=== PATIENT | male | born 1955 | race Caucasian/White ===

== ENCOUNTER 2019-05-30 10:30 | Emergency (ER) | payer MEDICAID, SELFPAY ==
[2019-05-30] VITALS (8 sets, daily range): BP systolic 124–160; BP diastolic 68–105; PULSE 87–116; RESP 6–24; TEMP 36.4; O2SAT 94–95; BMI 33.3
--- NOTE | 2019-05-30 10:32 | W.ED.FALL ---
HPI - Fall General: Chief Complaint: Extremity Problem,Nontraumatic Stated Complaint: FALL Time Seen by Provider: 05/30/19 10:32 Source: patient and family Mode of arrival: ambulatory Limitations: no limitations History of Present Illness: HPI Narrative: Patient is a 64-year-old male who presents to ED today with complaints of knee pain following a fall. Patient states he was ambulating to the bathroom with the help of a walker when his knees gave out causing him to fall. Patient denies striking his head or LOC. He does not complain of neck or back pain. Patient's knee pain is chronic. He has been seen at our facility several times for his knees buckling . MD complaint: fall Onset (ago): hour(s) Fall from: standing Fall witnessed: yes, by family Place fall occurred: home Loss of consciousness: None Prolonged down time: no Symptoms prior to fall: none Context: other (kneees gave out) Location of injury - extremities: Right: knee Associated symptoms-after fall: Denies abdominal pain, chest pain, headache(s), lightheadedness or neck pain Review of Systems Const: Denies: fever, chills, body aches, fatigue or malaise Eyes: Denies: change in vision or blurry vision Card: Reports: swelling of feet/ankles (chronic); Denies: chest pain, palpitations, irregular heart rhythm, edema, lightheadedness, syncope, pre-syncope or bluish discoloration of hands/feet Resp: Denies: shortness of breath, productive cough, coughing up blood or chest congestion GI: Denies: abdominal pain, nausea or vomiting : Denies: flank pain or difficulty urinating Musc: Reports: joint pain (bilateral knees-chronic) and joint swelling (bilateral knees-chronic ); Denies: neck pain or back pain Skin/Breast: Denies: rash or itching Neuro: Denies: headache, numbness in extremities, weakness in extremities or changes in sensation PFSH ED PFSH: Statuses (acute, chronic, etc) shown below reflect problem list status as previously entered and may not be historically accurate Social History Smoking and tobacco status: never smoked Physical Exam Const: COMMON NORMALS: no apparent distress, oriented x3, no limitations and alert HENMT: COMMON NORMALS: normocephalic and head/scalp atraumatic HEAD & SCALP: normocephalic and atraumatic Neck/C-Spine: COMMON NORMALS: full ROM CERVICAL SPINE: No pain with cervical ROM and No cervical spine tenderness Resp: COMMON NORMALS: normal respiratory effort and clear to auscultation bilaterally AUSCULTATION: clear to auscultation bilaterally Cardio: COMMON NORMALS: regular rate and regular rhythm RATE: regular rate RHYTHM: regular rhythm GI: COMMON NORMALS: soft to palpation and non-tender INSPECTION: Yes normal to inspection AUSCULTATION: Yes normoactive bowel sounds PALPATION: Yes soft Back/Pelvis: COMMON NORMALS: thoracic and lumbar spine normal to inspection and thoraco-lumbar ROM normal Extremity: OTHER: pt has 2+ bilateral pitting edema from his feet all the way up to his groin; genitals not affected; bilateral legs are cool to the touch but equal bilaterally Neuro: COMMON NORMALS: oriented x3 SENSORIUM/ORIENTATION: Yes alert Course Consultations: Consultation #1: Dr. Preston-hospitalist at [facility]-accepts patient Vital Signs: Vital signs: Vital Signs Temperature 97.5 F L 05/30/19 10:38 Pulse Rate 87 05/30/19 10:56 Respiratory Rate 19 H 05/30/19 10:38 Blood Pressure 160/101 05/30/19 10:38 Pulse Oximetry 94 05/30/19 10:56 MDM - Fall MDM Narrative: Medical decision making narrative: Patient initially came in with a complaint of his knees buckling however on physical exam he has 2+ pitting edema from his toes all the way up to his groin. He has cardiomegaly and a right-sided pleural effusion on his chest x-ray. He has a BNP of over 27,000. Complains of dyspnea with exertion. Patient denies history of CHF. He is supposed to be taking Lasix 40 mg daily but has not been taking this medication or any of his other medications since December. BUN/Cr slightly elevated at 27/1.6 and a GFR of 44. Mildly elevated potassium of 5.5. Patient needs to be admitted for careful diuresis however we do not have any beds available at our facility therefore will be transferred to [facility]. Lab Data: Labs: Lab Results 05/30/19 05/30/19 05/30/19 Range/Units 11:03 11:03 11:03 WBC 4.0 (4.0-10.0) 10^3/ uL RBC 3.85 L (4.1-5.3) 10^6/u L Hgb 10.8 L (11.7-16.6) g/dL Hct 36.4 L (42.0-52.0) % MCV 94.5 H (80-94) fL MCH 28.1 (28.0-34.0) pg MCHC 29.7 L (30.0-36.0) g/dL RDW 12.9 (12.1-15.1) % Plt Count 190 (130-400) 10^3/c mm MPV 8.7 (7.4-10.4) fL Neut % (Auto) 74.2 % Lymph % (Auto) 9.6 % Sully % (Auto) 12.4 % Eos % (Auto) 3.0 % Baso % (Auto) 0.8 % Neut # (Auto) 2.9 (1.8-7.7) 10^3/u L Lymph # (Auto) 0.4 L (0.8-4.8) 10^3/u L Sully # (Auto) 0.5 (0.2-0.9) 10^3/u L Eos # (Auto) 0.1 (0.0-0.8) 10^3/u L Baso # (Auto) 0.0 (0.0-0.1) 10^3/u L Nucleated RBC % (a uto) 0 % Nucleated RBCs # 0.0 /100WBC Sodium 140 (136-145) mmol/L Potassium 5.5 H (3.5-5.1) mmol/L Chloride 110 H (98-107) mmol/L Carbon Dioxide 22 (22-29) mmol/L Anion Gap 13.5 (5-19) BUN 27 H (8-23) mg/dL Creatinine 1.6 H (0.7-1.2) mg/dL GFR Calculation 44.0 L (90-130) mL/min Glucose 183 H (65-115) mg/dL Calcium 8.7 (8.5-10.5) mg/dL Magnesium 2.1 (1.7-2.3) mg/dL Total Bilirubin 0.4 (0.15-1.2) mg/dL AST 10 (0-40) U/L ALT 6 (0-41) U/L Alkaline Phosphata se 124 (40-130) IU/L NT-Pro-B Natriuret Pep 79505 H (0-125) pg/mL Total Protein 5.8 L (6.6-8.7) g/dL Albumin 3.1 L (3.5-5.2) g/dL Globulin 2.7 (1.3-4.6) g/dL Urine Color (Yellow) Urine Appearance (CLEAR) Urine pH (5-7) Ur Specific Gravit y (1.005-1.030) Urine Protein (Negative) Urine Glucose (UA) (Normal) Urine Ketones (Negative) Urine Occult Blood (Negative) Urine Nitrate (Negative) Urine Bilirubin (NEGATIVE) Urine Urobilinogen (Negative) mg/dL Ur Leukocyte Elise ase (Negative) Urine RBC (0-2) /hpf Urine WBC (0-5) /hpf Ur Squamous Epith Cells (0-5) Urine Bacteria (NONE) Hyaline Casts Urine Yeast 05/30/19 Range/Units 11:25 WBC (4.0-10.0) 10^3/ uL RBC (4.1-5.3) 10^6/u L Hgb (11.7-16.6) g/dL Hct (42.0-52.0) % MCV (80-94) fL MCH (28.0-34.0) pg MCHC (30.0-36.0) g/dL RDW (12.1-15.1) % Plt Count (130-400) 10^3/c mm MPV (7.4-10.4) fL Neut % (Auto) % Lymph % (Auto) % Sully % (Auto) % Eos % (Auto) % Baso % (Auto) % Neut # (Auto) (1.8-7.7) 10^3/u L Lymph # (Auto) (0.8-4.8) 10^3/u L Sully # (Auto) (0.2-0.9) 10^3/u L Eos # (Auto) (0.0-0.8) 10^3/u L Baso # (Auto) (0.0-0.1) 10^3/u L Nucleated RBC % (a uto) % Nucleated RBCs # /100WBC Sodium (136-145) mmol/L Potassium (3.5-5.1) mmol/L Chloride (98-107) mmol/L Carbon Dioxide (22-29) mmol/L Anion Gap (5-19) BUN (8-23) mg/dL Creatinine (0.7-1.2) mg/dL GFR Calculation (90-130) mL/min Glucose (65-115) mg/dL Calcium (8.5-10.5) mg/dL Magnesium (1.7-2.3) mg/dL Total Bilirubin (0.15-1.2) mg/dL AST (0-40) U/L ALT (0-41) U/L Alkaline Phosphata se (40-130) IU/L NT-Pro-B Natriuret Pep (0-125) pg/mL Total Protein (6.6-8.7) g/dL Albumin (3.5-5.2) g/dL Globulin (1.3-4.6) g/dL Urine Color Yellow (Yellow) Urine Appearance Clear (CLEAR) Urine pH 5.0 (5-7) Ur Specific Gravit y 1.015 (1.005-1.030) Urine Protein 3+ H (Negative) Urine Glucose (UA) 2+ (Normal) Urine Ketones Negative (Negative) Urine Occult Blood 2+ H (Negative) Urine Nitrate Negative (Negative) Urine Bilirubin Neg (NEGATIVE) Urine Urobilinogen Norm (Negative) mg/dL Ur Leukocyte Elise ase Negative (Negative) Urine RBC 0-4 H (0-2) /hpf Urine WBC 5-10 H (0-5) /hpf Ur Squamous Epith Cells 0-4 H (0-5) Urine Bacteria 1+ H (NONE) Hyaline Casts 0-4 H Urine Yeast 1+ H Imaging Data^: CXR: Radiologist's impression: [address] [address] XRay Report Signed Patient: Richi Bradley Unit #: [id number] : 1955 Age/Sex: 64 / M ADM Date: 05/30/19 Loc: ER Room/Bed: Attending Dr: Ordering Provider/Ordering MD: Melania Hooker Date of Service: 05/30/19 Procedure(s): XR chest 1V portable [id number] Accession Number(s): [id number] Report Number: [id number] WS: [id number] PORTABLE CHEST HISTORY: cough/congestion COMPARISON: 01/14/2019 Study is limited by technique. Supine lordotic positioning. Lung volumes are decreased. Slight elevation of the RIGHT hemidiaphragm. Small RIGHT pleural effusion may be present. Cardiac size: Moderately enlarged cardiac silhouette. May be exacerbated by lordotic positioning. Mediastinum/Aorta: Normal mediastinum. No osseous abnormality seen. XR/XR chest 1V portable [id number] IMPRESSION: 1. Significantly limited evaluation of the chest due to lordotic positioning and body habitus. 2. Cardiac silhouette is enlarged as compared to the prior study which is probably positional. 3. Small RIGHT pleural effusion should be considered clinically. Dictated By: Nemo Mock DO Signed By: Nemo Mock DO Signed Date/Time: 05/30/19 1223 DD/ 1221 Discharge Plan Discharge Patient Disposition: Xfer Other Clinical Impression: Acute hyperkalemia, Non compliance w medication regimen Acute congestive heart failure Qualifiers: Heart failure type: unspecified Qualified Code(s): I50.9 - Heart failure, unspecified Condition: Stable Referrals: Ping Marshall DO [Family Provider] - Coding Level of Care Code ED Gallery Or Museum Attendant for Chg Fwd Exam Problem Focused
--- NOTE | 2019-05-30 10:55 | XR_ITS ---
WS: [id number] PORTABLE CHEST HISTORY: cough/congestion COMPARISON: 01/14/2019 Study is limited by technique. Supine lordotic positioning. Lung volumes are decreased. Slight elevation of the RIGHT hemidiaphragm. Small RIGHT pleural effusion may be present. Cardiac size: Moderately enlarged cardiac silhouette. May be exacerbated by lordotic positioning. Mediastinum/Aorta: Normal mediastinum. No osseous abnormality seen. XR/XR chest 1V portable [id number] IMPRESSION: 1. Significantly limited evaluation of the chest due to lordotic positioning a nd body habitus. 2. Cardiac silhouette is enlarged as compared to the prior study which is prob ably positional. 3. Small RIGHT pleural effusion should be considered clinically.
[2019-05-30 11:13] LABS: Basophils % 0.8 %; Eosinophils # 0.1 10^3/uL (0.0-0.8); Hematocrit 36.4 % (42.0-52.0); Hemoglobin 10.8 g/dL (11.7-16.6); Lymphocytes # 0.4 10^3/uL (0.8-4.8); Lymphocytes % 9.6 %; Mean Corpuscular HGB Conc 29.7 g/dL (30.0-36.0); Mean Corpuscular Hemoglobin 28.1 pg (28.0-34.0); Mean Corpuscular Volume 94.5 fL (80-94); Mean Platelet Volume 8.7 fL (7.4-10.4); Monocytes # 0.5 10^3/uL (0.2-0.9); Monocytes % 12.4 %; Neutrophils # 2.9 10^3/uL (1.8-7.7); Neutrophils % 74.2 %; Nucleated Red Blood Cells % 0 %; Platelet Count 190 10^3/cmm (130-400); Red Blood Count 3.85 10^6/uL (4.1-5.3); Red Cell Distribution Width 12.9 % (12.1-15.1)
[2019-05-30 11:36] LABS: Alanine Aminotransferase 6 U/L (0-41); Albumin Level 3.1 g/dL (3.5-5.2); Alkaline Phosphatase 124 IU/L (40-130); Anion Gap 13.5 (5-19); Aspartate Amino Transferase 10 U/L (0-40); Blood Urea Nitrogen 27 mg/dL (8-23); Calcium 8.7 mg/dL (8.5-10.5); Carbon Dioxide 22 mmol/L (22-29); Chloride 110 mmol/L (98-107); Globulin 2.7 g/dL (1.3-4.6); Glucose 183 mg/dL (65-115); NT Pro B Type Natriuretic Pept 27301 pg/mL (0-125); Potassium 5.5 mmol/L (3.5-5.1); Sodium 140 mmol/L (136-145); Total Bilirubin 0.4 mg/dL (0.15-1.2); Total Protein 5.8 g/dL (6.6-8.7)
--- NOTE | 2019-05-30 11:46 | ECG_ITS ---
Measurements Intervals [place] Rate: 111 P: 41 CO: 173 QRS: 24 QRSD: 98 T: -33 QT: 317 QTc: [address] DEPRESSION [0.025+ mV ST DEPRESSION] ABNORMAL RHYTHM ECG INTERPRETATION BASED ON A DEFAULT AGE OF 40 YEARS Compared to ECG 01/14/2019 11:33:21 ST (T wave) deviation now present Sinus rhythm no longer present T-wave abnormality no longer present Electronically Signed On 05-30-2019 20:59:49 GARNETT FEEDER by Jim Luciano M.D. [id number] peck
[2019-05-30 12:01] LABS: Add Urine Microscopic? YES; Bilirubin Urine Neg (NEGATIVE); Blood Urine 2+ (Negative); Glucose Urine UA 2+ (Normal); Ketones Urine Negative (Negative); Leukocyte Esterase Urine Negative (Negative); Nitrate Urine Negative (Negative); Protein Urine 3+ (Negative); Specific Gravity, Urine 1.015 (1.005-1.030); Urine Appearance Clear (CLEAR); Urine Color Yellow (Yellow); Urobilinogen Urine Norm (Negative)
[2019-05-30 12:19] LABS: Add Urine Culture? Yes; Bacteria Urine 1+; Hyaline Casts Urine 0-4; RBC Urine 0-4 /hpf (0-2); Squamous Epithelial Cell Urine 0-4 (0-5)
[2019-05-30 12:32] LABS: Magnesium 2.1 mg/dL (1.7-2.3)
[2019-05-30] MEDS: FUROsemide 10 mg/mL SDV 10mL 80 MG IVP (13:42)
--- NOTE | 2019-05-30 19:34 | PC.NURSE ---
rec'd pt resting in bed. asking when ambulance service is to arrive. unable to give ETA at this time. pt very agitated stating i am fixing to leave if it is going to be much longer
--- NOTE | 2019-05-30 19:50 | PC.NURSE ---
pt on bedside commode
== END 2019-05-30 20:15 | disposition other institution (70) ==
PROVIDERS: Emergency Provider Physician Assistant; Family Provider Family Medicine
DX: E87.5 Hyperkalemia (principal); R60.0 Localized edema; I51.7 Cardiomegaly; J90 Pleural effusion, not elsewhere classified; Z91.14 Patient's other noncompliance with medication regimen
CPT/HCPCS: 36415; 71045; 80053; 81001; 83735; 83880; 85025; 87086; 93005; 96374; 96375; 99283; 99284; J1940

== ENCOUNTER 2019-08-06 20:00 | Emergency (ER) | payer MEDICAID, SELFPAY | END 2019-08-06 22:53 | disposition admitted as inpatient to this hospital (09) | LOC: ER 08-08 07:15 | PROVIDERS: Emergency Provider Emergency Medicine; Family Provider Family Medicine | DX: I50.9 Heart failure, unspecified (principal); E87.5 Hyperkalemia; Z87.891 Personal history of nicotine dependence; Z23 Encounter for immunization | CPT/HCPCS: 12345; 36415; 36416; 71045; 76870; 80048; 80053; 81001; 82962; 83735; 83880; 84100; 85025; 85610; 90471; 90686; 93005; 93925; 96372; 96374; 96375; 99283; 99285; G0378; J1650; J1815; J1940 ==

== ENCOUNTER 2019-08-06 20:00 | Inpatient (IN) | payer MEDICAID, SELFPAY ==
[2019-08-06 20:05] VITALS: BP 160/95; PULSE 104; RESP 18; TEMP 36.4; O2SAT 96; BMI 48.2
--- NOTE | 2019-08-06 20:13 | ECG_ITS ---
Measurements Intervals [place] Rate: 109 P: 53 TN: 175 QRS: 91 QRSD: 84 T: -2 QT: 319 QTc: 431 SINUS TACHYCARDIA BORDERLINE RIGHT AXIS DEVIATION [QRS AXIS > 90] PATTERN CONSISTENT WITH PULMONARY DISEASE ABNORMAL QRS-T ANGLE [QRS-T AXIS DIFFERENCE > 60] Compared to ECG 05/30/2019 12:13:43 ST (T wave) deviation no longer present Electronically Signed On 08-07-2019 18:09:35 CDT by Jim Luciano M.D. [id number]
--- NOTE | 2019-08-06 20:13 | XRR_ITS ---
PROCEDURE INFORMATION: Exam: XR Chest, 1 View Exam date and time: 08/06/2019 8:29 PM Age: 64 years old Clinical indication: Shortness of breath; Additional info: HTN TECHNIQUE: Imaging protocol: XR of the chest Views: 1 view. COMPARISON: CR XR chest 1V portable [id number] 05/30/2019 12:00 PM FINDINGS: Lungs: Vascular congestion. Perihilar interstitial opacities. Increased atelectasis in the right lung base. Pleural space: Increased moderate right pleural effusion. No pneumothorax. Heart/Mediastinum: Cardiomegaly. Bones/joints: Unremarkable. XR/XR chest 1V portable [id number] IMPRESSION: 1. Mild congestive heart failure pattern. 2. Increased right pleural effusion
[2019-08-06 20:21] LABS: Basophils % 0.7 %; Eosinophils # 0.1 10^3/uL (0.0-0.8); Eosinophils % 2.7 %; Hematocrit 37.2 % (42.0-52.0); Hemoglobin 11.1 g/dL (11.7-16.6); Lymphocytes # 0.3 10^3/uL (0.8-4.8); Lymphocytes % 9.4 %; Mean Corpuscular HGB Conc 29.8 g/dL (30.0-36.0); Mean Corpuscular Hemoglobin 26.9 pg (28.0-34.0); Mean Corpuscular Volume 90.3 fL (80-94); Mean Platelet Volume 9.5 fL (7.4-10.4); Monocytes # 0.4 10^3/uL (0.2-0.9); Monocytes % 14.4 %; Neutrophils # 2.2 10^3/uL (1.8-7.7); Neutrophils % 72.5 %; Nucleated Red Blood Cells % 0 %; Platelet Count 215 10^3/cmm (130-400); Red Blood Count 4.12 10^6/uL (4.1-5.3); Red Cell Distribution Width 17.2 % (12.1-15.1)
--- NOTE | 2019-08-06 20:25 | USCV_ITS ---
Richi Bradley Age: 64 Gender: M : 1955 Exam Date: 08/06/2019 20:36 Ordering Phys: Lucy Urban MD Technologist: Breann Yuen [place]am [place] [facility] [place] Indication: DECREASED PULSES Risk Factors: Previous Vascular Surgery: RIGHT LEFT BP: 151.0 / 100.00 BP: / 0 Waveform Velocity (cm/s) Velocity (cm/s) Waveform Triphasic 65.5 Iliac Prox 27.9 Triphasic Triphasic 63.3 Iliac Mid 71.5 Triphasic Triphasic Iliac Distal Triphasic 43.9 33.3 Triphasic 59.7 GAS CONTROLLER 60.4 Biphasic SFA Prox 54.9 Biphasic SFA Mid 47.2 Biphasic SFA Dist N/A Biphasic 54.6 POP 68.1 Biphasic Biphasic 30.2 EVALUATION ENGINEER 35.3 Biphasic Biphasic 69.1 DPA 33.4 Biphasic 1.2 CLOVER FINDINGS RIGHT SFA NOT VISULIZED FLOW SEEN ABOVE AND BELOW RT EVALUATION ENGINEER = 160, RT DPA =180 LT EVALUATION ENGINEER = >240, LT DPA = 100 LEFT CLOVER = N/A CONCLUSIONS Supernormal resting CLOVER on the left side. Normal resting CLOVER on the right side. No significant arterial obstruction, based on the ABIs. However the entire superficial femoral artery on the right side and the distal superficial femoral artery on the left side were not visualized. Technically difficult study Dr Jim Luciano MD [facility] (Electronically Signed) Final Date: 07 August 2019 17:40 S
--- NOTE | 2019-08-06 20:34 | ED_ITS ---
HPI - Male Genitourinary General: Chief complaint: Urogenital-Male Stated complaint: swollen testicles/ diabetic wounds/ sob Time Seen by Provider: 08/06/19 20:13 Source: patient and EMS Mode of arrival: EMS History of Present Illness: HPI Narrative: Patient is a 64-year-old male who states that his dog jumped on him and struck him in his testicles and has had testicle pain since then. Patient also has chronic sores to bilateral lower legs and is hypertensive. He states he has not seen a primary care doctor in years. He states his testicle pain is much improved and is now a 2 out of 10. Denies any worsening improving factors. He denies any fever abdominal pain. MD Complaint: testicle pain Duration: constant Associated symptoms: Deny dysuria, nausea or vomiting Review of Systems Const: Denies: fever, chills, body aches or change in appetite Eyes: Denies: blurry vision or eye discomfort ENMT: Denies: throat pain or dental pain Card: Denies: chest pain Resp: Denies: shortness of breath GI: Denies: abdominal pain, nausea, vomiting or diarrhea : Reports: testicular pain; Denies: painful urination Musc: Denies: neck pain or back pain Skin/Breast: Denies: rash Neuro: Denies: headache Psych: Denies: depression Gary/Lymph: Denies: easy bruising All/Imm: Denies: hives PFSH ED PFSH: Social History Smoking and tobacco status: former smoker Physical Exam Const: COMMON NORMALS: no apparent distress, oriented x3 and healthy appearing HENMT: COMMON NORMALS: normocephalic and head/scalp atraumatic HEAD & SCALP: normocephalic and atraumatic Eye: COMMON NORMALS: PERRL and EOMs intact bilaterally PUPIL: Yes PERRL Neck/C-Spine: COMMON NORMALS: full ROM and supple Chest: COMMONS NORMALS: inspection of chest normal and palpation of chest normal Resp: COMMON NORMALS: normal respiratory effort, no retractions, no use of accessory muscles and clear to auscultation bilaterally AUSCULTATION: clear to auscultation bilaterally Cardio: COMMON NORMALS: regular rate, regular rhythm and no murmurs RATE: regular rate RHYTHM: regular rhythm GI: COMMON NORMALS: normal to inspection, nondistended, normoactive bowel sounds, soft to palpation, non-tender and no masses PALPATION: Yes soft Extremity: COMMON NORMALS: full ROM NARRATIVE EXTREMITY EXAM: Decreased capillary refill to the left foot abrasions to bilateral legs that appear chronic. Neuro: COMMON NORMALS: oriented x3, moves all extremities and no focal motor deficits Psych: COMMON NORMALS: mental status grossly normal, thought process normal and cooperative THOUGHT PROCESS: normal thought process Skin: COMMON NORMALS: no rashes or lesions noted and no wounds GENERAL SKIN EXAM: no rashes or lesions noted Course Vital Signs: Vital signs: Vital Signs Temperature 97.6 F 08/06/19 20:05 Pulse Rate 104 H 08/06/19 20:05 Respiratory Rate 18 08/06/19 20:05 Blood Pressure 160/95 08/06/19 20:05 Pulse Oximetry 96 08/06/19 20:05 MDM - Male MDM Narrative: Medical decision making narrative: Patient presents here with hyperkalemia along with congestive heart failure. Patient is noncompliant with his meds likely causing his CHF. Patient initially had decreased pulses to his feet. After ultrasound I redid his pulses with Doppler and got strong pulses in bilateral feet. Ankle-brachial indexes were performed and were normal. Right arm was 152/93 right leg was 174/113, left arm was 160/106 left leg 152/112. I spoke to Dr. Huizar will admit for observation. Lab Data: Labs: Lab Results 08/06/19 08/06/19 08/06/19 Range/Units 19:47 19:47 19:54 WBC 3.0 L (4.0-10.0) 10^3/ uL RBC 4.12 (4.1-5.3) 10^6/u L Hgb 11.1 L (11.7-16.6) g/dL Hct 37.2 L (42.0-52.0) % MCV 90.3 (80-94) fL MCH 26.9 L (28.0-34.0) pg MCHC 29.8 L (30.0-36.0) g/dL RDW 17.2 H (12.1-15.1) % Plt Count 215 (130-400) 10^3/c mm MPV 9.5 (7.4-10.4) fL Neut % (Auto) 72.5 % Lymph % (Auto) 9.4 % Mcdonough % (Auto) 14.4 % Eos % (Auto) 2.7 % Baso % (Auto) 0.7 % Neut # (Auto) 2.2 (1.8-7.7) 10^3/u L Lymph # (Auto) 0.3 L (0.8-4.8) 10^3/u L Mcdonough # (Auto) 0.4 (0.2-0.9) 10^3/u L Eos # (Auto) 0.1 (0.0-0.8) 10^3/u L Baso # (Auto) 0.0 (0.0-0.1) 10^3/u L Nucleated RBC % (a uto) 0 % Nucleated RBCs # 0.0 /100WBC PT (10.5-13.3) SECO NDS INR (0.8-1.2) Sodium 142 (136-145) mmol/L Potassium 5.9 H (3.5-5.1) mmol/L Chloride 109 H (98-107) mmol/L Carbon Dioxide 22 (22-29) mmol/L Anion Gap 16.9 (5-19) BUN 37 H (8-23) mg/dL Creatinine 1.8 H (0.7-1.2) mg/dL GFR Calculation 38.4 L (90-130) mL/min Glucose 207 H (65-115) mg/dL Calculated Osmolal ity 298 H (285-295) mOsm/k g Calcium 8.5 (8.5-10.5) mg/dL Total Bilirubin 0.4 (0.15-1.2) mg/dL AST 10 (0-40) U/L ALT 8 (0-41) U/L Alkaline Phosphata se 132 H (40-130) IU/L NT-Pro-B Natriuret Pep 40854 H (0-125) pg/mL Total Protein 5.5 L (6.6-8.7) g/dL Albumin 3.1 L (3.5-5.2) g/dL Globulin 2.4 (1.3-4.6) g/dL 08/06/19 Range/Units 19:54 WBC (4.0-10.0) 10^3/ uL RBC (4.1-5.3) 10^6/u L Hgb (11.7-16.6) g/dL Hct (42.0-52.0) % MCV (80-94) fL MCH (28.0-34.0) pg MCHC (30.0-36.0) g/dL RDW (12.1-15.1) % Plt Count (130-400) 10^3/c mm MPV (7.4-10.4) fL Neut % (Auto) % Lymph % (Auto) % Mcdonough % (Auto) % Eos % (Auto) % Baso % (Auto) % Neut # (Auto) (1.8-7.7) 10^3/u L Lymph # (Auto) (0.8-4.8) 10^3/u L Mcdonough # (Auto) (0.2-0.9) 10^3/u L Eos # (Auto) (0.0-0.8) 10^3/u L Baso # (Auto) (0.0-0.1) 10^3/u L Nucleated RBC % (a uto) % Nucleated RBCs # /100WBC PT 14.60 H (10.5-13.3) SECO NDS INR 1.10 (0.8-1.2) Sodium (136-145) mmol/L Potassium (3.5-5.1) mmol/L Chloride (98-107) mmol/L Carbon Dioxide (22-29) mmol/L Anion Gap (5-19) BUN (8-23) mg/dL Creatinine (0.7-1.2) mg/dL GFR Calculation (90-130) mL/min Glucose (65-115) mg/dL Calculated Osmolal ity (285-295) mOsm/k g Calcium (8.5-10.5) mg/dL Total Bilirubin (0.15-1.2) mg/dL AST (0-40) U/L ALT (0-41) U/L Alkaline Phosphata se (40-130) IU/L NT-Pro-B Natriuret Pep (0-125) pg/mL Total Protein (6.6-8.7) g/dL Albumin (3.5-5.2) g/dL Globulin (1.3-4.6) g/dL Imaging Data: CXR: Radiologist's impression: [facility] [address] [place] [address] XRay Report Signed Patient: Richi Bradley Unit #: [id number] : 1955 Age/Sex: 64 / M ADM Date: 08/06/19 Loc: ER Room/Bed: Attending Dr: Ordering Provider/Ordering MD: Lucy Urban MD Date of Service: 08/06/19 Procedure(s): XR chest 1V portable [id number] Accession Number(s): [id number] Report Number: [id number] PROCEDURE INFORMATION: Exam: XR Chest, 1 View Exam date and time: 08/06/2019 8:29 PM Age: 64 years old Clinical indication: Shortness of breath; Additional info: HTN TECHNIQUE: Imaging protocol: XR of the chest Views: 1 view. COMPARISON: CR XR chest 1V portable [id number] 05/30/2019 12:00 PM FINDINGS: Lungs: Vascular congestion. Perihilar interstitial opacities. Increased atelectasis in the right lung base. Pleural space: Increased moderate right pleural effusion. No pneumothorax. Heart/Mediastinum: Cardiomegaly. Bones/joints: Unremarkable. XR/XR chest 1V portable [id number] IMPRESSION: 1. Mild congestive heart failure pattern. 2. Increased right pleural effusion EKG Data: EKG 1: Attestation: I personally reviewed and interpreted this EKG as follows: EKG Data: 08/06/19 EKG interpretation time: 22:14 Interpretation: sinus tach hr [address] or t wave abnormalities Discharge Plan Discharge Patient Disposition: Admitted As Inpatient Clinical Impression: CHF (congestive heart failure), Acute hyperkalemia Condition: Stable Referrals: Ping Marshall DO [Family Provider] - Coding Level of Care Code ED Med Care Manager for Chg Fwd Exam Comprehensive
[2019-08-06 21:03] LABS: Alanine Aminotransferase 8 U/L (0-41); Albumin Level 3.1 g/dL (3.5-5.2); Alkaline Phosphatase 132 IU/L (40-130); Anion Gap 16.9 (5-19); Aspartate Amino Transferase 10 U/L (0-40); Blood Urea Nitrogen 37 mg/dL (8-23); Calcium 8.5 mg/dL (8.5-10.5); Carbon Dioxide 22 mmol/L (22-29); Chloride 109 mmol/L (98-107); Globulin 2.4 g/dL (1.3-4.6); Glomerular Filtration Rate 38.4 mL/min (90-130); Glucose 207 mg/dL (65-115); Osmolality Calculated 298 mOsm/kg (285-295); Potassium 5.9 mmol/L (3.5-5.1); Sodium 142 mmol/L (136-145); Total Bilirubin 0.4 mg/dL (0.15-1.2); Total Protein 5.5 g/dL (6.6-8.7)
[2019-08-06 21:34] LABS: NT Pro B Type Natriuretic Pept 30630 pg/mL (0-125)
[2019-08-06] MEDS: insulin regular-human 100 units/1 mL 10 UNIT IVP (21:49)
[2019-08-06] MEDS: dextrose 50% syringe 50 mL IVP (21:52)
[2019-08-06] MEDS: FUROsemide 10 mg/mL SDV 10mL 60 MG IVP (21:52)
[2019-08-06 22:44] VITALS: BP 142/84; PULSE 98; RESP 16; O2SAT 96
[2019-08-06 23:07] VITALS: BP 150/100; PULSE 110; RESP 20; TEMP 36.5; O2SAT 97
[2019-08-07] VITALS (7 sets, daily range): BP systolic 131–168; BP diastolic 79–105; PULSE 83–111; RESP 20–24; TEMP 36.4–36.7; O2SAT 88–99
--- NOTE | 2019-08-07 06:05 | P.HP_ITS ---
Providers/Chief Complaint Admitting Physician: Jessica Ty MD Primary Care Provider: None presently Chief Complaint: CHF EXACERBATION, HYPERKALEMIA History of Present Illness Richi Bradley is a 64 year old male who presented to the emergency room with chief complaint of actually testicular pain. He stated that his dog jumped on him a day or so ago and he has had significant pain in his testicles since then. On initial examination in the emergency room, he was noted to be grossly edematous including in the scrotal area. Initially they were not able to get pulses by Doppler in the lower extremities. Patient was noted to have multiple sores although he cannot tell me how old they are. He has some drainage of serous fluid. Arterial Dopplers were done of the lower extremities and the had difficulty seeing any flow however the short time later, pulses were able to be dopplerable and ABIs measured at the bedside were normal by report. Chest x-ray showed significant increase in pulmonary edema compared to prior. In talking with Mr. Bradley, he has not had any of his prescriptions filled except for Levemir since his primary care provider changed positions. Looks like medications were last filled in the fall. He was found to have an elevated BNP of 30,000+ as well as some hyperkalemia and is being admitted for further evaluation and treatment. Currently patient admits to being quite short of breath with any amount of exertion. He has been urinating more but struggling to do so. He has had no awareness of the sores in his legs until today. He does complain of pain in his legs as well as the pain in his scrotum is already noted. No recent fevers. He has had both productive and nonproductive cough. No current chest pain. Review of Systems Const: Reports: change in weight (Weight gain); Denies: fever or chills Eyes: Denies: change in vision ENMT: Denies: throat pain or nasal congestion Card: Reports: chest pain and edema; Denies: palpitations Resp: Reports: shortness of breath, productive cough, non-productive cough and wheezing; Denies: coughing up blood GI: Denies: abdominal pain, nausea, vomiting, difficulty swallowing, diarrhea, constipation or blood in stool : Reports: urinary frequency, testicular pain and other (scrotal edema) Musc: Reports: redness; Denies: joint swelling or joint warmth Skin/Breast: Reports: sores (Since noting them after being here in the emergency room in hospital) Neuro: Reports: weakness in extremities (Generalized); Denies: headache or numbness in extremities Psych: Denies: anxiety or depression Gary/Lymph: Denies: easy bruising or easy bleeding Medications/Allergies Home Medications Medication Instructions Recorded Confirmed Last Taken Type acetaminophen [Tylenol Extra 1,000 mg PO Q4H PRN 05/30/19 05/30/19 Unknown History Strength] atorvastatin 10 mg PO BEDTIME 05/30/19 05/30/19 Unknown History carvedilol 25 mg PO BID 05/30/19 05/30/19 Unknown History cefuroxime axetil 250 mg PO BID 05/30/19 05/30/19 Unknown History furosemide 40 mg PO DAILY 05/30/19 05/30/19 Unknown History insulin detemir U-100 [Levemir 42 unit SUBCUT BEDTIME 05/30/19 05/30/19 Unknown History FlexTouch U-100 Insuln] potassium chloride 20 meq PO DAILY 05/30/19 05/30/19 Unknown History Allergies Allergy/AdvReac Type Severity Reaction Status Date / Time ibuprofen Allergy ADR-Chest Verified 05/30/19 10:43 Pain Additional Medication Information Patient tells me the only thing he has had since last fall is Levemir PFSH Acute PFSH: Medical History (Updated 08/07/19 @ 09:18 by Jessica Ty MD) Aortic stenosis Aortic valve area 0.84 cm? with a mean gradient of 44 mmHg on last available echocardiogram from September of last year. Sounds like he has not followed up consistently. CAD (coronary artery disease) RCA stent Chronic kidney disease COPD (chronic obstructive pulmonary disease) Diabetes mellitus type 2, insulin dependent Dyslipidemia Hypertension Surgical History (Updated 08/07/19 @ 09:11 by Jessica Ty MD) History of appendectomy History of heart artery stent History of tonsillectomy Family History (Updated 08/07/19 @ 09:11 by Jessica Ty MD) Other CAD (coronary artery disease) Cancer Social History (Updated 08/07/19 @ 09:12 by Jessica Ty MD) Smoking and tobacco status: former smoker Substance/Drug Use: never Vitals/I&O/Wt Last Vital Signs Temp 97.7 F 08/07/19 04:00 Pulse 110 H 08/07/19 04:00 Resp 22 H 08/07/19 04:00 BP 168/105 08/07/19 04:00 Pulse Ox 91 08/07/19 04:00 08/06/19 08/06/19 08/07/19 14:59 22:59 06:59 Output Total 600 / 600 Balance -600 / -600 Weight last 48 hrs Weight 131.542 kg Physical Exam Const: COMMON NORMALS: oriented x3 and alert GENERAL APPEARANCE: cooperative and in distress (Moderate after getting up to bedside commode but calms down after resting) HENMT: COMMON NORMALS: normocephalic, head/scalp atraumatic and moist oral mucous membranes Eye: COMMON NORMALS: PERRL and EOMs intact bilaterally Neck/C-Spine: COMMON NORMALS: supple Resp: EFFORT & INSPECTION: Yes tachypneic, Yes pursed lip breathing, Yes labored and Yes uses accessory muscles AUSCULTATION: rales bilateral, wheezes scattered wheezes and diminished lung sounds on the right throughout and on the left in the lower lung pierre Cardio: RATE: tachycardic RHYTHM: regular rhythm HEART SOUNDS: murmur systolic Location: right sternal border Radiation: to the neck Intensity: III/ Characteristics: blowing PERIPHERAL PULSES: other (Dopplerable pulses at both feet) GI: COMMON NORMALS: soft to palpation and non-tender INSPECTION: Yes abdominal distension AUSCULTATION: Yes normoactive bowel sounds : MALE GROIN/PERINEUM EXAM: Yes edema (Of both the penis and the scrotum) PENIS: edematous SCROTUM: Yes tenderness (Unable to localize tenderness to specific place, no visual sores or ecchymosis noted anteriorly or visualized posterior) and Yes scrotal swelling Scrotal swelling laterality: bilateral Extremity: NARRATIVE EXTREMITY EXAM: No joint swelling is noted GENERAL: Yes edema Neuro: COMMON NORMALS: moves all extremities SPEECH: speech normal GAIT: Yes other (Able to get from bedside commode to bed without assistance beyond handholds) Skin: NARRATIVE SKIN EXAM: Multiple sores to both lower extremities in varying sizes from half a centimeter up to 3 to 4 cm x 2 to 3 cm. All with some scabbing. Most draining serous fluid. No areas of purulence noted. There is spontaneous serous drainage from places without sores as well. Skin has a brawny appearance with erythema surrounding the areas where there are sores but no warmth. No areas of actual fluctuance. Data : 08/06/19 19:54 08/07/19 06:55 A&P Assessment and plan (1) CHF (congestive heart failure): Acute on chronic. Known to have diastolic dysfunction but cannot rule out acute pulmonary edema related to aortic stenosis as well. Status: Chronic Qualifiers: Heart failure type: diastolic Heart failure chronicity: acute on chronic Qualified Code(s): I50.33 - Acute on chronic diastolic (congestive) heart failure (2) Acute hyperkalemia: Potentially could be related to medications though he denied taking. Also has known chronic kidney disease Status: Acute (3) Testicular pain: I suspect this is secondary to the degree of edema that he has but with the limitation of examination due to severity of pain need to evaluate a bit further Status: Acute (4) Ulcers of both lower legs: Has chronic stasis changes but multiple wounds in different stages of healing to both lower extremities. They all look to have been there for some period of time. In addition he has serous drainage and gross edema. Status: Acute (5) CAD (coronary artery disease): Status: Chronic Qualifiers: Coronary Disease-Associated Artery/Lesion type: [place] artery [place] vs. transplanted heart: [place] heart Associated angina: without angina Qualified Code(s): I25.10 - Atherosclerotic heart disease of [place] coronary artery without angina pectoris (6) Aortic stenosis: Severe Status: Chronic Qualifiers: Cardiac valve disease etiology: nonrheumatic Qualified Code(s): I35.0 - Nonrheumatic aortic (valve) stenosis (7) Chronic kidney disease: At least stage III Status: Chronic Qualifiers: Chronic kidney disease stage: stage 3 (moderate) Qualified Code(s): N18.3 - Chronic kidney disease, stage 3 (moderate) (8) Diabetes mellitus type 2, insulin dependent: Chronically on Levemir Status: Chronic (9) COPD (chronic obstructive pulmonary disease): Does not appear to be the primary issue at the moment Status: Chronic Qualifiers: COPD type: unspecified COPD Qualified Code(s): J44.9 - Chronic obs tructive pulmonary disease, unspecified Additional A&P Information None IV diuresis Hold supplemental potassium currently Monitor renal function closely Monitor overall volume status given history of aortic stenosis Follow-up official report from arterial Dopplers of both lower extremities Dopplerable areas where pulses can be found are marked at both the dorsalis pedis and posterior tibialis Continue home statin, carvedilol at a lower dose Add Plavix Testicular ultrasound has been requested, I discussed with patient that this might be uncomfortable but it would allow us to discern if there is anything more than just edema contributing to his pain Urinalysis Empiric vancomycin and Zosyn for legs I will give him a lower dose of Levemir and sliding scale insulin Diabetic diet with fluid restriction Lovenox for DVT prophylaxis at renal dosing Supportive care otherwise Plans were discussed with patient and he was given an opportunity to ask questions. He did initially refused to have us IV replaced after it came out getting up to the bedside commode but he agreed after some discussion about the importance. Full code Attestations Medical Necessity Statement*: Anticipated stay currently less than 2 midnights in this patient who has been out of his medications for a while including diuretics and has significant edema on examination. Plans are as noted above. Coding Level of Care Code Acute Seed Corn Production Manager for Juan J Rees Diagnoses CHF (congestive heart failure) I50.33 Heart failure type: diastolic Heart failure chronicity: acute on chronic Acute hyperkalemia E87.5 Testicular pain N50.819 Ulcers of both lower legs L97.919; L97.929 CAD (coronary artery disease) I25.10 Coronary Disease-Associated Artery/Lesion type: [place] artery [place] vs. transplanted heart: [place] heart Associated angina: without angina Aortic stenosis I35.0 Cardiac valve disease etiology: nonrheumatic Chronic kidney disease N18.3 Chronic kidney disease stage: stage 3 (moderate) Diabetes mellitus type 2, insulin dependent E11.9; Z79.4 COPD (chronic obstructive pulmonary disease) J44.9 COPD type: unspecified COPD
--- NOTE | 2019-08-07 06:05 | US_ITS ---
WS: [id number] SCROTAL ULTRASOUND EXAMINATION CLINICAL INFORMATION: persistent testicular pain COMPARISON: None. FINDINGS: TESTES Diffuse scrotal edema with moderate left hydrocele. Both testicles are otherwise Normal in size and echotexture, without focal lesion. Color Doppler: Normal color Doppler flow pattern. Right testes size: 4.9 cm x 2.8 cm x 3.5 cm. Left testes size: 3.0 cm x 2.0 cm x 2.5 cm. EPIDIDYMIDES Not well identified bilaterally. HYDROCELE Moderate right VARICOCELE None. OTHER FINDINGS None. US/US scrotum [id number] IMPRESSION: 1. Moderate left hydrocele with diffuse scrotal edema. 2. Testicles are otherwise unremarkable in appearance and echotexture. 3. Epididymis not identified bilaterally.
[2019-08-07] MEDS: acetaminophen 325 mg Tablet 650 MG PO ×4 (06:12→21:32)
[2019-08-07] MEDS: FUROsemide 10 mg/mL SDV 10mL 60 MG IVP ×2 (06:12→17:21)
[2019-08-07 06:48] LABS: Glucose Point of Care 111 mg/dL (70-110)
[2019-08-07 07:22] LABS: Anion Gap 17.3 (5-19); Blood Urea Nitrogen 40 mg/dL (8-23); Calcium 8.5 mg/dL (8.5-10.5); Carbon Dioxide 20 mmol/L (22-29); Chloride 109 mmol/L (98-107); Glomerular Filtration Rate 36.1 mL/min (90-130); Glucose 129 mg/dL (65-115); Magnesium 1.7 mg/dL (1.7-2.3); Osmolality Calculated 291 mOsm/kg (285-295); Phosphorus 4.7 mg/dL (2.5-4.5); Potassium 5.3 mmol/L (3.5-5.1); Sodium 141 mmol/L (136-145)
[2019-08-07] MEDS: carvedilol 12.5 mg Tablet PO ×2 (08:44→17:21)
[2019-08-07] MEDS: enoxaparin 30 mg/0.3 mL Syringe SUBCUT (08:45)
[2019-08-07 10:50] LABS: Add Urine Microscopic? YES; Bilirubin Urine Neg (NEGATIVE); Blood Urine 2+ (Negative); Glucose Urine UA Trace (Normal); Ketones Urine Negative (Negative); Leukocyte Esterase Urine Negative (Negative); Nitrate Urine Negative (Negative); Protein Urine 3+ (Negative); Urine Appearance Clear (CLEAR); Urine Color Yellow (Yellow); Urobilinogen Urine Norm (Negative)
[2019-08-07 10:56] LABS: Add Urine Culture? No; Bacteria Urine TRACE; Mucus Urine TRACE; RBC Urine 0-4 /hpf (0-2); Squamous Epithelial Cell Urine 0-4 (0-5)
[2019-08-07 10:58] LABS: Glucose Point of Care 169 mg/dL (70-110)
--- NOTE | 2019-08-07 11:05 | PM.PN ---
Subjective Subjective: Interval history: Reports shortness of breath which has not significantly improved since last night. He denies any chest pain, palpitations, fever or chills, nausea or vomiting, diarrhea. Reports peripheral swelling. He also reports swelling in his scrotum which started according to the patient when he is dog jumped and landed on his scrotum while he was in the bed. There is no associated redness. He has some tenderness in the area. The patient also describes orthopnea and PND. Medications: Reviewed: Yes Medication Review Details: Generic Name Dose Route Start Last Admin Trade Name Freq PRN Reason Stop Dose Admin Acetaminophen 650 mg 08/07/19 05:59 08/07/19 06:12 Tylenol PO 650 mg Q4H PRN Administration MILD PAIN OR INCR EASE TEMP Carvedilol 12.5 mg 08/07/19 09:00 08/07/19 08:44 Coreg PO 12.5 mg BID DARNELL Administration Enoxaparin Sodium 30 mg 08/07/19 06:15 08/07/19 08:45 Lovenox SUBCUT 30 mg Q24H DARNELL Administration Furosemide 60 mg 08/07/19 06:00 08/07/19 06:12 Lasix IVP 60 mg Q12H DARNELL Administration Insulin Aspart 0 unit 08/07/19 08:00 08/07/19 07:35 Novolog SUBCUT Not Given [facility]ID[facility] Protocol Vitals/I&O/Wt Last Vital Signs Temp 98.1 F 08/07/19 07:38 Pulse 111 H 08/07/19 09:11 Resp 20 H 08/07/19 07:38 BP 143/91 08/07/19 07:38 Pulse Ox 88 L 08/07/19 09:11 08/06/19 08/07/19 08/07/19 22:59 06:59 14:59 Intake Total 240 / 240 Output Total 600 / 600 100 / 100 Balance -600 / -600 140 / 140 Weight last 48 hrs Weight 131.542 kg Physical Exam Narrative: EXAM NARRATIVE: The patient is awake alert and oriented. Mild distress. Mood and affect are appropriate and responses are adequate. Sitting in a chair. Skin is warm and dry. Moist mucous membranes. Neck supple. No JVD Lungs bilateral crackles are present. Mild tachypnea. Heart S1, S2, regular Abdomen soft, obese, nontender, bowel sounds are present Scrotum is diffusely swollen. No forms or significant hyperemia. Not severely tender. Extremities bilateral edema. No cyanosis no calf tenderness bilaterally Data : 08/06/19 19:54 08/07/19 06:55 Other Labs: Laboratory Results WBC 3.0 10^3/uL (4.0-10.0) L 08/06/19 19:54 RBC 4.12 10^6/uL (4.1-5.3) 08/06/19 19:54 Hgb 11.1 g/dL (11.7-16.6) L 08/06/19 19:54 Hct 37.2 % (42.0-52.0) L 08/06/19 19:54 MCV 90.3 fL (80-94) 08/06/19 19:54 MCH 26.9 pg (28.0-34.0) L 08/06/19 19:54 MCHC 29.8 g/dL (30.0-36.0) L 08/06/19 19:54 RDW 17.2 % (12.1-15.1) H 08/06/19 19:54 Plt Count 215 10^3/cmm (130-400) 08/06/19 19:54 MPV 9.5 fL (7.4-10.4) 08/06/19 19:54 Neut % (Auto) 72.5 % 08/06/19 19:54 Lymph % (Auto) 9.4 % 08/06/19 19:54 [place] % (Auto) 14.4 % 08/06/19 19:54 Eos % (Auto) 2.7 % 08/06/19 19:54 Baso % (Auto) 0.7 % 08/06/19 19:54 Neut # (Auto) 2.2 10^3/uL (1.8-7.7) 08/06/19 19:54 Lymph # (Auto) 0.3 10^3/uL (0.8-4.8) L 08/06/19 19:54 [place] # (Auto) 0.4 10^3/uL (0.2-0.9) 08/06/19 19:54 Eos # (Auto) 0.1 10^3/uL (0.0-0.8) 08/06/19 19:54 Baso # (Auto) 0.0 10^3/uL (0.0-0.1) 08/06/19 19:54 Nucleated RBC % (auto) 0 % 08/06/19 19:54 Nucleated RBCs # 0.0 /100WBC 08/06/19 19:54 PT 14.60 SECONDS (10.5-13.3) H 08/06/19 19:54 INR 1.10 (0.8-1.2) 08/06/19 19:54 Sodium 141 mmol/L (136-145) 08/07/19 06:55 Potassium 5.3 mmol/L (3.5-5.1) H 08/07/19 06:55 Chloride 109 mmol/L (98-107) H 08/07/19 06:55 Carbon Dioxide 20 mmol/L (22-29) L 08/07/19 06:55 Anion Gap 17.3 (5-19) 08/07/19 06:55 BUN 40 mg/dL (8-23) H 08/07/19 06:55 Creatinine 1.9 mg/dL (0.7-1.2) H 08/07/19 06:55 GFR Calculation 36.1 mL/min (90-130) L 08/07/19 06:55 Glucose 129 mg/dL (65-115) H 08/07/19 06:55 POC Glucose 169 mg/dL (70-110) 08/07/19 10:37 Calculated Osmolality 291 mOsm/kg (285-295) 08/07/19 06:55 Calcium 8.5 mg/dL (8.5-10.5) 08/07/19 06:55 Phosphorus 4.7 mg/dL (2.5-4.5) H 08/07/19 06:55 Magnesium 1.7 mg/dL (1.7-2.3) 08/07/19 06:55 Total Bilirubin 0.4 mg/dL (0.15-1.2) 08/06/19 19:47 AST 10 U/L (0-40) 08/06/19 19:47 ALT 8 U/L (0-41) 08/06/19 19:47 Alkaline Phosphatase 132 IU/L (40-130) H 08/06/19 19:47 NT-Pro-B Natriuret Pep 16402 pg/mL (0-125) H 08/06/19 19:47 Total Protein 5.5 g/dL (6.6-8.7) L 08/06/19 19:47 Albumin 3.1 g/dL (3.5-5.2) L 08/06/19 19:47 Globulin 2.4 g/dL (1.3-4.6) 08/06/19 19:47 Urine Color Yellow (Yellow) 08/07/19 10:15 Urine Appearance Clear (CLEAR) 08/07/19 10:15 Urine pH 5.0 (5-7) 08/07/19 10:15 Ur Specific [place] 1.010 (1.005-1.030) 08/07/19 10:15 Urine Protein 3+ (Negative) H 08/07/19 10:15 Urine Glucose (UA) Trace (Normal) H 08/07/19 10:15 Urine Ketones Negative (Negative) 08/07/19 10:15 Urine Blood 2+ (Negative) H 08/07/19 10:15 Urine Nitrate Negative (Negative) 08/07/19 10:15 Urine Bilirubin Neg (NEGATIVE) 08/07/19 10:15 Urine Urobilinogen Norm mg/dL (Negative) 08/07/19 10:15 Ur Leukocyte Esterase Negative (Negative) 08/07/19 10:15 Urine RBC 0-4 /hpf (0-2) H 08/07/19 10:15 Urine WBC None /hpf (0-5) 08/07/19 10:15 Ur Squamous Epith Cells 0-4 (0-5) H 08/07/19 10:15 Urine Bacteria Trace (NONE) 08/07/19 10:15 Urine Mucus Trace 08/07/19 10:15 Impressions Chest X-Ray 08/06/19 20:13 IMPRESSION: 1. Mild congestive heart failure pattern. 2. Increased right pleural effusion Scrotum Ultrasound 08/07/19 06:05 IMPRESSION: 1. Moderate left hydrocele with diffuse scrotal edema. 2. Testicles are otherwise unremarkable in appearance and echotexture. 3. Epididymis not identified bilaterally. A&P Additional A&P Information Congestive heart failure. No significant improvement yet. Currently on IV Lasix and beta-kt. Has evidence of acute kidney injury and hyperkalemia. Not on ZITA inhibitor for that reason. I will start him on Imdur and small dose of hydralazine. Will request cardiology consult. He has history of aortic stenosis and diastolic dysfunction. Swollen scrotum. I suspect this is secondary to generalized edema. Ultrasound did not show any significant signs of injury to testicles. Discussed with the nurse. We will keep the scrotum elevated. Hopefully the diuresis will help with this as well. Suspected peripheral arterial disease. Doppler studies are ordered. Please follow-up on the results. Acute kidney injury on top of chronic kidney disease stage III and hyperkalemia. Will avoid any nephrotoxic medications. Will monitor renal function and electrolytes. Hypomagnesemia. Replacement is ordered. Continue monitoring. DVT prophylaxis. Enoxaparin renally adjusted. Diabetes. Continue home Levemir and insulin sliding scale. The plan of care was discussed with the patient. He verbalized understanding and agreement. Attestations Medical Necessity Statement*: The plan of care requires further inpatient hospitalization. Coding Level of Care Code Acute Resource Recovery Specialist for Juan J Rees
[2019-08-07] MEDS: isosorbide mononitrate ER 30 mg Tablet PO (11:26)
--- NOTE | 2019-08-07 12:00 | PC.CHAP ---
Pastoral Care Encounter/Spiritual Assessment Type of Contact [X] Declined veneer manufacturer visit [] Patient/Family/Request visit [] Outpatient visit [] Follow-up visit [] Physician referral [] Code/Alert [] Routine visit [] Staff referral [] Actively dying [] Patient sleeping [] Family support [] [] Out of room [] Palliative care [] [] Receiving care in room [] Pre-surgical visit [] Trauma [] Long length of stay [] ICU visit [] Other: Relational/Emotional Strength [] Patient feels connected with others/family/visitors/staff [] Distress [] Loneliness/isolation [] Abandonment Spirituality of Patient [] Person of Viola [] Attends Jew of their Viola [] Believes in Prayer [] Reads Bible or Mandaeism materials [] There are Spiritual issues to be addressed Dyer Assistant Interventions [] Prayer [] Active listening [] Non-anxious presence [] Spiritual/emotional support [] Crisis/trauma care [] Spiritual counseling [] Bereavement support [] Provided bereavement packet [] Provided Bible/devotional materials [] Provided toy/stuffed animal, coloring book to patient or family member [] Provided Communion [] Anointing/[place] [] Salvation [] Completed spiritual assessment [] Other: Impact on Illness or Injury [] Angry [] Fearful [] Anxious [] Often cries [] Exhaustion [] Unable to work [] Unable to attend zoroastrianism [] Unable to walk/stand [] Unable to read [] Unable to drive [] Unable to eat/drink [] Unable to sleep [] Unable to be with family [] Patient intubated [] Other: Summary Declined veneer manufacturer visit Time spent with patient 5 mins
[2019-08-07] MEDS: piperacillin-tazobactam 3.375 GM in sodium chloride 0.9% (plus) 50 ML IV ×2 (13:55→21:30)
[2019-08-07] MEDS: hyDRALAzine 10 mg Tablet PO ×2 (13:56→21:32)
[2019-08-07 16:57] LABS: Glucose Point of Care 175 mg/dL (70-110)
--- NOTE | 2019-08-07 17:59 | NUR.SHIFT ---
SHIFT SUMMARY PATIENT HAS DONE OKAY TODAY. HE HAS COMPLAINED OF PAIN DUE TO HIS SCROTAL EDEMA. I HAVE ELEVATED PATIENT'S SCROTUM ON A TOWEL THE MAJORITY OF THE DAY AND ADMINISTERED TYLENOL FOR PAIN RELIEF. PATIENT HAS RECEIVED NEW MEDICATIONS FOR BLOOD PRESSURE CONTROL AND I HAVE ALSO ADMINISTERED VANCOMYCIN AND ZOSYN. PATIENT ALSO HAS PENILE EDEMA. I HAVE BLADDER SCANNED PATIENT TO MAKE SURE HE DOES NOT HAVE URINARY RETENTION AND PATIENT ONLY HAD 90ML OF URINE IN BLADDER. PATIENT URINATING 50-100ML AT A TIME. CURRENTLY RESTING IN BED WATCHING TV. ONLY TAKEN IN 798ML OF HIS 2000ML FLUID RESTRICTION AT THIS TIME.
[2019-08-07 20:45] LABS: Glucose Point of Care 172 mg/dL (70-110)
[2019-08-07] MEDS: atorvastatin 40 mg Tablet 20 MG PO (21:32)
[2019-08-08] VITALS (7 sets, daily range): BP systolic 96–127; BP diastolic 61–77; PULSE 83–91; RESP 18–24; TEMP 36.4–37; O2SAT 90–99
[2019-08-08] MEDS: acetaminophen 325 mg Tablet 650 MG PO ×2 (02:52→08:51)
[2019-08-08 05:44] LABS: Basophils % 1.3 %; Eosinophils # 0.1 10^3/uL (0.0-0.8); Eosinophils % 4.4 %; Hematocrit 33.7 % (42.0-52.0); Lymphocytes # 0.3 10^3/uL (0.8-4.8); Lymphocytes % 13.5 %; Mean Corpuscular HGB Conc 29.7 g/dL (30.0-36.0); Mean Corpuscular Volume 90.8 fL (80-94); Monocytes # 0.4 10^3/uL (0.2-0.9); Monocytes % 17.5 %; Neutrophils # 1.4 10^3/uL (1.8-7.7); Neutrophils % 62.4 %; Nucleated Red Blood Cells % 0 %; Platelet Count 173 10^3/cmm (130-400); Red Blood Count 3.71 10^6/uL (4.1-5.3); Red Cell Distribution Width 17.3 % (12.1-15.1); White Blood Count 2.3 10^3/uL (4.0-10.0)
[2019-08-08 05:53] LABS: Albumin Level 2.9 g/dL (3.5-5.2); Anion Gap 15.8 (5-19); Blood Urea Nitrogen 41 mg/dL (8-23); Calcium 8.5 mg/dL (8.5-10.5); Carbon Dioxide 20 mmol/L (22-29); Chloride 110 mmol/L (98-107); Glucose 174 mg/dL (65-115); Phosphorus 5.9 mg/dL (2.5-4.5); Potassium 5.8 mmol/L (3.5-5.1); Sodium 140 mmol/L (136-145)
[2019-08-08 05:54] LABS: Magnesium 1.9 mg/dL (1.7-2.3)
[2019-08-08] MEDS: FUROsemide 10 mg/mL SDV 10mL 60 MG IVP ×2 (05:58→18:45)
[2019-08-08 06:05] LABS: Glucose Point of Care 168 mg/dL (70-110)
[2019-08-08] MEDS: hyDRALAzine 10 mg Tablet PO ×3 (08:51→21:28)
[2019-08-08] MEDS: piperacillin-tazobactam 3.375 GM in sodium chloride 0.9% (plus) 50 ML IV (08:51)
[2019-08-08] MEDS: carvedilol 12.5 mg Tablet PO (08:51)
[2019-08-08] MEDS: enoxaparin 40 mg/0.4 mL Syringe SUBCUT (08:51)
[2019-08-08] MEDS: clopidogrel 75 mg Tablet PO (08:51)
[2019-08-08] MEDS: isosorbide mononitrate ER 30 mg Tablet PO (08:52)
--- NOTE | 2019-08-08 09:43 | PC.CHAP ---
Pastoral Care Encounter/Spiritual Assessment Type of Contact [] Declined computer graphic designer visit [] Patient/Family/Request visit [] Outpatient visit [] Follow-up visit [] Physician referral [] Code/Alert [x] Routine visit [] Staff referral [] Actively dying [] Patient sleeping [] Family support [] [] Out of room [] Palliative care [] [] Receiving care in room [] Pre-surgical visit [] Trauma [] Long length of stay [] ICU visit [] Other: Relational/Emotional Strength [] Patient feels connected with others/family/visitors/staff [] Distress [] Loneliness/isolation [] Abandonment Spirituality of Patient [] Person of Viola [] Attends Evangelical of their [place] [] Believes in Prayer [] Reads Bible or Oriental Orthodox materials [] There are Spiritual issues to be addressed Inspecting Supervisor Interventions [x] Prayer [] Active listening [] Non-anxious presence [] Spiritual/emotional support [] Crisis/trauma care [] Spiritual counseling [] Bereavement support [] Provided bereavement packet [] Provided Bible/devotional materials [] Provided toy/stuffed animal, coloring book to patient or family member [] Provided Communion [] Anointing/[place] [] Salvation [x] Completed spiritual assessment [] Other: Impact on Illness or Injury [] Angry [] Fearful [] Anxious [] Often cries [] Exhaustion [] Unable to work [] Unable to attend pentecostal [] Unable to walk/stand [] Unable to read [] Unable to drive [] Unable to eat/drink [] Unable to sleep [] Unable to be with family [] Patient intubated [] Other: Summary Patient trying to rest Time spent with patient 5min
[2019-08-08 10:58] LABS: Glucose Point of Care 144 mg/dL (70-110)
--- NOTE | 2019-08-08 11:08 | PC.RESP ---
Pulmonary Rehab information sent to patient.
--- NOTE | 2019-08-08 12:41 | CT_ITS ---
WS: [id number] CT pelvis TECHNIQUE: Noncontrast CT of the pelvis with coronal and sagittal reformatted images. CLINICAL INFORMATION: testicular swelling COMPARISON: None. DLP: 1056.[address] scans at [facility] use at least one of these dose optimization techniques: automat ed exposure control; mA and/or kV adjustment per patient size (includes targeted exams where dose is matched to clinical indication); or iterative reconstruction. FINDINGS: Diffuse body wall anasarca extending into the upper thighs. Diffuse enlargement of the scrotum with s crotal edema also seen on the recent ultrasound. Associated skin thickening. Moderate left and small right hydrocele. Sigmoid diverticulosis. No no inguinal lymphadenopathy. Vascular calcification. No free fluid in the pelvis. Normal visualized pelvic bony structures CT/CT pelvis wo con [id number] IMPRESSION: 1. Diffuse body wall anasarca extending into the upper thighs. 2. Diffuse scrotal edema also seen on the recent ultrasound with skin thickeni ng. Moderate left hydrocele. 3. No free fluid in the pelvis. 4. Normal sigmoid colon. 5. No inguinal lymphadenopathy.
--- NOTE | 2019-08-08 12:50 | P.CONIM_ITS ---
Providers/Reason For Consult Consulting Physican/Specialty*: Urology/Hedrick Reason for Consult*: Severe bilateral testicular pain Attending Physician: Bjorn Aguilar MD History of Present Illness History of Present Illness Richi Bradley is a 64 year old male who I evaluated for the first time today at the request of Dr. Cuellar for severe bilateral testicular pain. He was admitted to the hospital for congestive heart failure treatment and cellulitis of his lower extremity. Both of which have been treated. Complained of scrotal swelling and pain. Described the pain is bad enough in both testicles that he would consider castration. Work-up has included an ultrasound that showed a left hydrocele and some thickened scrotal wall edema but no evidence of intratesticular pathology. Review of Systems Const: Reports: change in weight (Weight gain); Denies: fever or chills Eyes: Denies: change in vision ENMT: Denies: throat pain or nasal congestion Card: Reports: chest pain and edema; Denies: palpitations Resp: Reports: shortness of breath and non-productive cough GI: Denies: abdominal pain, nausea, vomiting, difficulty swallowing, diarrhea, constipation or blood in stool : Reports: urinary frequency and other (scrotal edema) Musc: Reports: redness; Denies: joint swelling or joint warmth Skin/Breast: Reports: other (Scrotal swelling) Neuro: Reports: weakness in extremities (Generalized); Denies: headache or slurred speech Psych: Reports: anxiety Endo: Denies: cold intolerance Gary/Lymph: Denies: easy bruising or easy bleeding Meds/Allergies Home Medications and Allergies Home Medications Medication Instructions Recorded Confirmed Type acetaminophen [Tylenol Extra 1,000 mg PO Q4H PRN 05/30/19 05/30/19 History Strength] atorvastatin 10 mg PO BEDTIME 05/30/19 05/30/19 History carvedilol 25 mg PO BID 05/30/19 05/30/19 History cefuroxime axetil 250 mg PO BID 05/30/19 05/30/19 History furosemide 40 mg PO DAILY 05/30/19 05/30/19 History insulin detemir U-100 [Levemir 42 unit SUBCUT BEDTIME 05/30/19 05/30/19 History FlexTouch U-100 Insuln] potassium chloride 20 meq PO DAILY 05/30/19 05/30/19 History Allergies Allergy/AdvReac Type Severity Reaction Status Date / Time ibuprofen Allergy ADR-Chest Verified 08/08/19 13:10 Pain Current Medications Current Medications Generic Name Dose Route Start Last Admin Trade Name Freq PRN Reason Stop Dose Admin Acetaminophen 650 mg 08/07/19 05:59 08/08/19 08:51 Tylenol PO 650 mg Q4H PRN Administration MILD PAIN OR INCREASE TEMP Atorvastatin Calcium 20 mg 08/07/19 21:00 08/07/19 21:32 Lipitor PO 20 mg BEDTIME DARNELL Administration Clopidogrel Bisulfate 75 mg 08/08/19 09:00 08/08/19 08:51 Plavix PO 75 mg DAILY DARNELL Administration Enoxaparin Sodium 40 mg 08/08/19 08:45 08/08/19 08:51 Lovenox SUBCUT 40 mg Q24H DARNELL Administration Furosemide 60 mg 08/07/19 06:00 08/08/19 05:58 Lasix IVP 60 mg Q12H DARNELL Administration Hydralazine HCl 10 mg 08/07/19 15:00 08/08/19 08:51 Apresoline PO 10 mg TID DARNELL Administration Piperacillin Sod/Tazobactam 50 mls @ 12.5 mls/hr 08/07/19 10:00 08/08/19 08:51 Sod 3.375 gm/ Sodium Chloride IV 12.5 mls/hr Q8H DARNELL Administration Protocol As Directed Vancomycin HCl 1,500 mg/ 250 mls @ 166.667 mls/hr 08/07/19 11:45 08/08/19 09:04 Sodium Chloride IV Infused Q24H DARNELL Infusion Protocol As Directed Insulin Aspart 0 unit 08/07/19 21:00 08/07/19 21:31 Novolog SUBCUT 1 unit BEDTIME DARNELL Administration Protocol Insulin Aspart 0 unit 08/07/19 08:00 08/08/19 11:21 Novolog SUBCUT 2 unit TIDWM DARNELL Administration Protocol Insulin Detemir 10 unit 08/07/19 21:00 08/07/19 21:31 Levemir SUBCUT 10 unit BEDTIME DARNELL Administration Isosorbide Mononitrate 30 mg 08/07/19 11:15 08/08/19 08:52 Imdur PO 30 mg DAILY DARNELL Administration PFSH Acute PFSH: Medical History Aortic stenosis Aortic valve area 0.84 cm? with a mean gradient of 44 mmHg on last available echocardiogram from September of last year. Sounds like he has not followed up consistently. CAD (coronary artery disease) RCA stent Chronic kidney disease COPD (chronic obstructive pulmonary disease) Diabetes mellitus type 2, insulin dependent Dyslipidemia Hypertension Surgical History History of appendectomy History of heart artery stent History of tonsillectomy Family History Other CAD (coronary artery disease) Cancer Social History Smoking and tobacco status: former smoker Substance/Drug Use: never Vitals/I&O/Wt Last Vital Signs Temp 98.3 F 08/08/19 11:01 Pulse 83 08/08/19 11:01 Resp 18 08/08/19 11:01 BP 96/61 08/08/19 11:01 Pulse Ox 97 08/08/19 11:01 08/07/19 08/08/19 08/08/19 22:59 06:59 14:59 Intake Total 848 / 1088 50 / 1138 490 / 490 Output Total 150 / 450 100 / 550 100 / 100 Balance 698 / 638 -50 / 588 390 / 390 Weight last 48 hrs Weight 290 lb Physical Exam Const: COMMON NORMALS: alert and well nourished GENERAL APPEARANCE: well kempt and well developed ORIENTATION/CONSCIOUSNESS: not confused HENMT: COMMON NORMALS: normocephalic and head/scalp atraumatic HEAD & SCALP: normocephalic and atraumatic Eye: COMMON NORMALS: conjunctivae normal and no scleral icterus CONJUNCTIVA: Yes conjunctivae normal Neck/C-Spine: COMMON NORMALS: full ROM GENERAL: Yes normal visual inspection Resp: COMMON NORMALS: normal respiratory effort EFFORT & INSPECTION: No labored and No actively coughing : MALE GROIN/PERINEUM EXAM: No ecchymosis and Yes edema PENIS: not erythematous OTHER: Phallus is hard to exam due to significant genital urinary edema. Moderate to severe scrotal swelling without evidence of eschar crepitus cellulitis etc. This is purely a fluid phenomenon related to systemic causes. Complains of significant discomfort when the scrotum itself is just mildly touched. Testicles were not even and involved in the first part of the examination and he was complaining of the pain with touching. No evidence of Rahul's gangrene etc. Neuro: SENSORIUM/ORIENTATION: Yes alert Psych: COMMON NORMALS: mental status grossly normal APPEARANCE: Yes grossly normal and Yes well kempt ATTITUDE: Yes calm and Yes engaged Skin: COMMON NORMALS: no rashes or lesions noted and no jaundice GENERAL SKIN EXAM: no rashes or lesions noted A&P Assessment and plan (1) Scrotal edema: Moderate to severe scrotal edema related to systemic cause with no evidence of local inflammatory process on examination. Tenderness on examination. No intrascrotal process on ultrasound or CT scan other than edematous fluid. Recommend continued conservative management with elevation. This will take a while to resolve. The patient was mentioning castration but there is absolutely no indication for that nor would it help the tenderness related to the scrotal edema. I can see him on a return to clinic as needed basis after discharge but I am available if there is any further concerns about the scrotal findings prior to discharge. Status: Acute Coding Level of Care Code Acute Varitypist for [facility] Fwd Exam Comprehensive Diagnoses Scrotal edema N50.89
--- NOTE | 2019-08-08 13:09 | PM.CONSULT ---
Providers/Reason For Consult Consulting Physican/Specialty*: Romeo De Leon MD Reason for Consult*: Scrotal swelling concerning for Attending Physician: Bjorn Aguilar MD History of Present Illness History of Present Illness Chief Complaint: Scrotum is hurting History of present illness: Mr. Richi Bradley is a pleasant 64 year old male with multiple associated medical comorbidities, history of his dog fell on him yesterday and there after started to develop swelling of his scrotum patient presented to the emergency department with associated pain, denies any fevers nausea or vomiting or chills, according to the patient who reports no previous scrotal swelling just happened after his dog fell on him. Ultrasound of the scrotum was done and showed: 1. Moderate left hydrocele with diffuse scrotal edema. 2. Testicles are otherwise unremarkable in appearance and echotexture. 3. Epididymis not identified bilaterally. Patient also reports other associated generalized swelling particularly of both legs, was admitted on the hospitalist service and surgical consultation was initiated for concern of Rahul gangrene of the scrotum. Review of Systems Const: Reports: change in weight (Weight gain); Denies: fever or chills Eyes: Denies: change in vision ENMT: Denies: throat pain or nasal congestion Card: Reports: chest pain and edema; Denies: palpitations Resp: Reports: shortness of breath, productive cough, non-productive cough and wheezing; Denies: coughing up blood GI: Denies: abdominal pain, nausea, vomiting, difficulty swallowing, diarrhea, constipation or blood in stool : Reports: urinary frequency, testicular pain and other (scrotal edema) Musc: Reports: redness; Denies: joint swelling or joint warmth Skin/Breast: Reports: sores (Since noting them after being here in the emergency room in hospital) and other (Scrotal swelling) Neuro: Reports: weakness in extremities (Generalized); Denies: headache or numbness in extremities Psych: Denies: anxiety or depression Gary/Lymph: Denies: easy bruising or easy bleeding Meds/Allergies Home Medications and Allergies Home Medications Medication Instructions Recorded Confirmed Type acetaminophen [Tylenol Extra 1,000 mg PO Q4H PRN 05/30/19 05/30/19 History Strength] atorvastatin 10 mg PO BEDTIME 05/30/19 05/30/19 History carvedilol 25 mg PO BID 05/30/19 05/30/19 History cefuroxime axetil 250 mg PO BID 05/30/19 05/30/19 History furosemide 40 mg PO DAILY 05/30/19 05/30/19 History insulin detemir U-100 [Levemir 42 unit SUBCUT BEDTIME 05/30/19 05/30/19 History FlexTouch U-100 Insuln] potassium chloride 20 meq PO DAILY 05/30/19 05/30/19 History Allergies Allergy/AdvReac Type Severity Reaction Status Date / Time ibuprofen Allergy ADR-Chest Verified 08/08/19 13:10 Pain Current Medications Current Medications Generic Name Dose Route Start Last Admin Trade Name Freq PRN Reason Stop Dose Admin Acetaminophen 650 mg 08/07/19 05:59 08/08/19 08:51 Tylenol PO 650 mg Q4H PRN Administration MILD PAIN OR INCREASE TEMP Atorvastatin Calcium 20 mg 08/07/19 21:00 08/07/19 21:32 Lipitor PO 20 mg BEDTIME DARNELL Administration Clopidogrel Bisulfate 75 mg 08/08/19 09:00 08/08/19 08:51 Plavix PO 75 mg DAILY DARNELL Administration Enoxaparin Sodium 40 mg 08/08/19 08:45 08/08/19 08:51 Lovenox SUBCUT 40 mg Q24H DARNELL Administration Furosemide 60 mg 08/07/19 06:00 08/08/19 05:58 Lasix IVP 60 mg Q12H DARNELL Administration Hydralazine HCl 10 mg 08/07/19 15:00 08/08/19 08:51 Apresoline PO 10 mg TID DARNELL Administration Piperacillin Sod/Tazobactam 50 mls @ 12.5 mls/hr 08/07/19 10:00 08/08/19 08:51 Sod 3.375 gm/ Sodium Chloride IV 12.5 mls/hr Q8H DARNELL Administration Protocol As Directed Vancomycin HCl 1,500 mg/ 250 mls @ 166.667 mls/hr 08/07/19 11:45 08/08/19 09:04 Sodium Chloride IV Infused Q24H DARNELL Infusion Protocol As Directed Insulin Aspart 0 unit 08/07/19 21:00 08/07/19 21:31 Novolog SUBCUT 1 unit BEDTIME DARNELL Administration Protocol Insulin Aspart 0 unit 08/07/19 08:00 08/08/19 11:21 Novolog SUBCUT 2 unit TIDWM DARNELL Administration Protocol Insulin Detemir 10 unit 08/07/19 21:00 08/07/19 21:31 Levemir SUBCUT 10 unit BEDTIME DARNELL Administration Isosorbide Mononitrate 30 mg 08/07/19 11:15 08/08/19 08:52 Imdur PO 30 mg DAILY DARNELL Administration PFSH Acute PFSH: Medical History Aortic stenosis Aortic valve area 0.84 cm? with a mean gradient of 44 mmHg on last available echocardiogram from September of last year. Sounds like he has not followed up consistently. CAD (coronary artery disease) RCA stent Chronic kidney disease COPD (chronic obstructive pulmonary disease) Diabetes mellitus type 2, insulin dependent Dyslipidemia Hypertension Surgical History History of appendectomy History of heart artery stent History of tonsillectomy Family History Other CAD (coronary artery disease) Cancer Social History Smoking and tobacco status: former smoker Substance/Drug Use: never Vitals/I&O/Wt Last Vital Signs Temp 98.3 F 08/08/19 11:01 Pulse 83 08/08/19 11:01 Resp 18 08/08/19 11:01 BP 96/61 08/08/19 11:01 Pulse Ox 97 08/08/19 11:01 08/07/19 08/08/19 08/08/19 22:59 06:59 14:59 Intake Total 848 / 1088 50 / 1138 490 / 490 Output Total 150 / 450 100 / 550 100 / 100 Balance 698 / 638 -50 / 588 390 / 390 Weight last 48 hrs Weight 290 lb Physical Exam Narrative: EXAM NARRATIVE: Patient is conscious alert oriented X3 BMI 37 Head and neck examination PERRLA no masses no cervical lymphadenopathy no jaundice Cardiac examination audible S1-S2 no murmurs no gallops no arrhythmias Chest fair air entry bilateral Abdomen nontender nondistended soft no organomegaly guarding or rigidity/no signs of peritonitis Remarkarbel swelling of the scrotum without evidence of blistering or cellulitis or skin changes likely due to recent trauma, clinically the scrotum is soft otherwise and that includes the perineal examination Extremities shows soft pitting edema A&P Assessment and plan (1) Scrotal edema: After history taking physical examination and reviewing the chart and images, I do believe that the patient has generalized edema and part of the swelling included to his scrotum and both lower extremities now with a history of trauma and underlying hematocele could be present yet there is no evidence of ecchymosis or bluish hue of the scrotal skin that would explain that. My recommendation is to obtain a CT scan of the pelvis that showed: 1. Diffuse body wall anasarca extending into the upper thighs. 2. Diffuse scrotal edema also seen on the recent ultrasound with skin thickening. Moderate left hydrocele. 3. No free fluid in the pelvis. 4. Normal sigmoid colon. 5. No inguinal lymphadenopathy. Repeat ultrasound of the scrotum I would recommend to obtain Dr. Hedrick's urological expertise in this case as well From general surgery standpoint of view as of now there is no acute surgical intervention likely the patient will benefit from diuresis and medical management and scrotal elevation. Also I did notice that the patient has hypoalbuminemia of 2.9 likely that can explain his anasarca, I will defer to the hospitalist service to address patient's nutrition status. Thank you for consulting general surgery to participate taking care Mr. Bradley Status: Acute Consult Attestations Medical Necessity Statement: Per hospitalist service Time Spent in Patient Care: 16 - 35 minutes (>than 50% of time spent in counselling and/or direct pt care on unit). Coding Level of Care Code Acute [employer] Log[employer] Analyst for [facility] Diagnoses Scrotal edema N50.89
[2019-08-08 16:43] LABS: Glucose Point of Care 131 mg/dL (70-110)
--- NOTE | 2019-08-08 17:59 | PM.PN ---
Subjective Subjective: Interval history: No acute event overnight. On examination patient states his breathing is better but he is concerned about pain in his scrotum/testicles. He is wondering if he can have his testicles removed surgically. He denies of having any nausea, vomiting, headache, dizziness. Labs, vitals noted. Medications: Reviewed: Yes Medication Review Details: Generic Name Dose Route Start Last Admin Trade Name Freq PRN Reason Stop Dose Admin Acetaminophen 650 mg 08/07/19 05:59 08/07/19 06:12 Tylenol PO 650 mg Q4H PRN Administration MILD PAIN OR INCR EASE TEMP Carvedilol 12.5 mg 08/07/19 09:00 08/07/19 08:44 Coreg PO 12.5 mg BID DARNELL Administration Enoxaparin Sodium 30 mg 08/07/19 06:15 08/07/19 08:45 Lovenox SUBCUT 30 mg Q24H DARNELL Administration Furosemide 60 mg 08/07/19 06:00 08/07/19 06:12 Lasix IVP 60 mg Q12H DARNELL Administration Insulin Aspart 0 unit 08/07/19 08:00 08/07/19 07:35 Novolog SUBCUT Not Given TIDWM [facility] Protocol Vitals/I&O/Wt Last Vital Signs Temp 98.6 F 08/08/19 15:16 Pulse 86 08/08/19 15:16 Resp 18 08/08/19 15:16 BP 114/75 08/08/19 15:16 Pulse Ox 98 08/08/19 15:16 08/08/19 08/08/19 08/08/19 06:59 14:59 22:59 Intake Total 50 / 1138 490 / 490 Output Total 100 / 550 200 / 200 50 / 250 Balance -50 / 588 290 / 290 -50 / 240 Weight last 48 hrs Weight 131.542 kg Physical Exam Narrative: EXAM NARRATIVE: Patient is conscious alert oriented X3 BMI 37 Head and neck examination PERRLA no masses no cervical lymphadenopathy no jaundice Cardiac examination audible S1-S2 no murmurs no gallops no arrhythmias Chest fair air entry bilateral Abdomen nontender nondistended soft no organomegaly guarding or rigidity/no signs of peritonitis Remarkarbel swelling of the scrotum without evidence of blistering or cellulitis or skin changes likely due to recent trauma, clinically the scrotum is soft otherwise and that includes the perineal examination Extremities shows soft pitting edema Data : 08/09/19 05:15 08/09/19 05:15 A&P Assessment and plan (1) CHF (congestive heart failure): Acute on chronic. Known to have diastolic dysfunction but cannot rule out acute pulmonary edema related to aortic stenosis as well. Status: Chronic Qualifiers: Heart failure chronicity: acute on chronic Heart failure type: diastolic Qualified Code(s): I50.33 - Acute on chronic diastolic (congestive) heart failure (2) Acute hyperkalemia: Potentially could be related to medications though he denied taking. Also has known chronic kidney disease Status: Acute (3) Testicular pain: Status: Acute (4) Ulcers of both lower legs: Status: Acute (5) CAD (coronary artery disease): Status: Chronic Qualifiers: Associated angina: without angina Coronary Disease-Associated Artery/Lesion type: [place] artery [place] vs. transplanted heart: tanana heart Qualified Code(s): I25.10 - Atherosclerotic heart disease of tan[place] coronary artery without angina pectoris (6) Aortic stenosis: Severe Status: Chronic Qualifiers: Cardiac valve disease etiology: nonrheumatic Qualified Code(s): I35.0 - Nonrheumatic aortic (valve) stenosis (7) Chronic kidney disease: At least stage III Status: Chronic Qualifiers: Chronic kidney disease stage: stage 3 (moderate) Qualified Code(s): N18.3 - Chronic kidney disease, stage 3 (moderate) (8) Diabetes mellitus type 2, insulin dependent: Chronically on Levemir Status: Chronic (9) COPD (chronic obstructive pulmonary disease): Does not appear to be the primary issue at the moment Status: Chronic Qualifiers: COPD type: unspecified COPD Qualified Code(s): J44.9 - Chronic obstructive pulmonary disease, unspecified Additional A&P Information Shortness of breath: Most likely because of congestive heart failure. Continue with Lasix 60 mg IV every 12. Strict input output charting. Daily weights. Fluid restriction 1500 every 24 hours. Not sure if input output charting is correct for now. Continue with Coreg but will decrease the dose to 6.25 mg twice daily. We will hold off on Imdur for now as blood pressures are on the borderline and would need high blood pressures for proper diuresing. Moreover would avoid Imdur as patient has severe aortic stenosis. Swollen scrotum: Most likely because of anasarca. But given the concern of extreme pain and prior trauma will get surgical and urology consult. [employer] 1 tab every [address] Check [address] pelvis to rule out scrotal air for Rahul's gangrene. Suspected peripheral arterial disease.: Normal arterial duplex study. Continue Plavix and statin. Check lipid panel. Acute kidney injury on top of chronic kidney disease stage III and hyperkalemia: Baseline creat 1.7. Today 2. Will avoid any nephrotoxic medications. Will monitor renal function and electrolytes. Check bladder scan for post void collection as possible need of mclean. ??Cellulitis: Weeping wounds on legs. Already on Vanc and zosyn, renally dosed. Day 3 of treatment Check Wound Cx, MRSA. If remains afebrile will de-escalte tomorrow. Leukopenia: Most likely 2/2 Abx. Will continue to monitor. No signs of sepsis DVT prophylaxis. Enoxaparin renally adjusted. Diabetes: Continue home Levemir and insulin sliding scale. FC Diabetic cardiac diet, 1500 cc fluid restriction. Attestations Medical Necessity Statement*: Anasarca, CHF, severe aortic stenosis, scrotal swelling Time Spent in Patient Care: Greater than 35 minutes Coding Level of Care Code Acute Drum Loader And Unloader for [facility] Diagnoses CHF (congestive heart failure) I50.33 Heart failure chronicity: acute on chronic Heart failure type: diastolic Acute hyperkalemia E87.5 Testicular pain N50.819 Ulcers of both lower legs L97.919; L97.929 CAD (coronary artery disease) I25.10 Associated angina: without angina Coronary Disease-Associated Artery/Lesion type: [place] artery [place] vs. transplanted heart: [place] heart Aortic stenosis I35.0 Cardiac valve disease etiology: nonrheumatic Chronic kidney disease N18.3 Chronic kidney disease stage: stage 3 (moderate) Diabetes mellitus type 2, insulin dependent E11.9; Z79.4 COPD (chronic obstructive pulmonary disease) J44.9 COPD type: unspecified COPD
[2019-08-08] MEDS: carvedilol 6.25 mg Tablet PO (18:45)
--- NOTE | 2019-08-08 19:03 | PC.NURSE ---
Bladder scanned pt per Dr order. Unable to determine amount of urine in bladder due to variable readings between 16-160+ mL. Consulted with Vesna Nelson RN. Vesna attempted the scan and received the same results. Dr. Aguilar notified.
--- NOTE | 2019-08-08 19:35 | PC.NURSE ---
Informed pt of order to insert Wilson catheter. Pt refused Wilson. Informed pt of the risks associated with not having the Wilson at this time. Pt continued to refuse placement. Dr. Aguilar notified. restaurant shift supervisor nurse agreed to attempt at a later time tonight.
[2019-08-08 21:17] LABS: Glucose Point of Care 193 mg/dL (70-110)
[2019-08-08] MEDS: atorvastatin 40 mg Tablet 20 MG PO (21:27)
[2019-08-08] MEDS: HYDROcodone-acetaminophen 5-325 mg Tablet 1 TAB PO (21:28)
[2019-08-09] VITALS (7 sets, daily range): BP systolic 116–146; BP diastolic 69–92; PULSE 81–88; RESP 18–24; TEMP 36.5–37; O2SAT 90–97
[2019-08-09 05:35] LABS: Basophils % 0.9 %; Eosinophils # 0.1 10^3/uL (0.0-0.8); Eosinophils % 6.1 %; Hematocrit 34.2 % (42.0-52.0); Lymphocytes # 0.4 10^3/uL (0.8-4.8); Lymphocytes % 15.7 %; Mean Corpuscular HGB Conc 29.2 g/dL (30.0-36.0); Mean Corpuscular Hemoglobin 27.1 pg (28.0-34.0); Mean Corpuscular Volume 92.7 fL (80-94); Mean Platelet Volume 9.1 fL (7.4-10.4); Monocytes # 0.4 10^3/uL (0.2-0.9); Monocytes % 18.3 %; Neutrophils # 1.4 10^3/uL (1.8-7.7); Neutrophils % 58.6 %; Nucleated Red Blood Cells % 0 %; Platelet Count 177 10^3/cmm (130-400); Red Blood Count 3.69 10^6/uL (4.1-5.3); Red Cell Distribution Width 17.3 % (12.1-15.1); White Blood Count 2.3 10^3/uL (4.0-10.0)
[2019-08-09 06:04] LABS: Alanine Aminotransferase 7 U/L (0-41); Albumin Level 2.8 g/dL (3.5-5.2); Alkaline Phosphatase 101 IU/L (40-130); Anion Gap 18.5 (5-19); Aspartate Amino Transferase 9 U/L (0-40); Blood Urea Nitrogen 44 mg/dL (8-23); Calcium 8.5 mg/dL (8.5-10.5); Carbon Dioxide 20 mmol/L (22-29); Chloride 109 mmol/L (98-107); Globulin 2.7 g/dL (1.3-4.6); Glomerular Filtration Rate 27.6 mL/min (90-130); Glucose 122 mg/dL (65-115); Osmolality Calculated 293 mOsm/kg (285-295); Potassium 5.5 mmol/L (3.5-5.1); Sodium 142 mmol/L (136-145); Total Bilirubin 0.4 mg/dL (0.15-1.2); Total Protein 5.5 g/dL (6.6-8.7)
[2019-08-09] MEDS: FUROsemide 10 mg/mL SDV 10mL 60 MG IVP (06:05)
[2019-08-09 06:35] LABS: Glucose Point of Care 114 mg/dL (70-110)
[2019-08-09] MEDS: HYDROcodone-acetaminophen 5-325 mg Tablet 1 TAB PO ×2 (07:24→17:30)
--- NOTE | 2019-08-09 07:32 | US_ITS ---
NOTE: Report was unsigned for reason: Order was edited. Original Signature date and time was: 08/09/19 @ 1538 WS: [id number] ULTRASOUND RENAL TECHNIQUE: Ultrasound examination of both kidneys. Patient elected to terminate the procedure prior to bladder examination due to pain. CLINICAL INFORMATION: CKD, post vioid assessment for urinary retention COMPARISON: None. FINDINGS: RIGHT: Right kidney is normal in size and appearance. Echogenicity: Normal. Cortical thickness: 1.7 cm; Normal. Hydronephrosis: None. Perinephric fluid: None. Right kidney measures: 12.4 cm x 6.1 cm x 5.4 cm. LEFT: Left kidney is normal in size and appearance. Echogenicity: Normal. Cortical thickness: 1.9 cm; Normal. Hydronephrosis: None. Perinephric fluid: None. Left kidney measures: 11.6 cm x 6.2 cm x 7.6 cm. Normal visualized aorta. Bladder not assessed. [facility] [place] US/US renal BI* [id number] IMPRESSION: 1. Normal renal ultrasound. No hydronephrosis. 2. Bladder was not able to be evaluated as patient elected to terminate the pr ocedure early due to pain.
[2019-08-09] MEDS: acetaminophen 325 mg Tablet 650 MG PO (08:22)
[2019-08-09] MEDS: carvedilol 6.25 mg Tablet PO ×2 (08:23→17:30)
[2019-08-09] MEDS: clopidogrel 75 mg Tablet PO (08:23)
[2019-08-09] MEDS: FUROsemide 40 mg Tablet 60 MG PO (08:23)
[2019-08-09] MEDS: enoxaparin 40 mg/0.4 mL Syringe SUBCUT (08:23)
[2019-08-09] MEDS: hyDRALAzine 10 mg Tablet PO ×3 (08:27→22:17)
--- NOTE | 2019-08-09 08:40 | P.PN_ITS ---
Subjective Subjective: Interval history: No acute events overnight from general surgery standpoint Swelling is less clinically of the scrotum Vitals/I&O/Wt Last Vital Signs Temp 98.6 F 08/09/19 08:00 Pulse 87 08/09/19 08:00 Resp 18 08/09/19 08:00 BP 138/82 08/09/19 08:00 Pulse Ox 95 08/09/19 08:00 08/08/19 08/09/19 08/09/19 22:59 06:59 14:59 Intake Total 410 / 900 60 / 960 Output Total 200 / 400 350 / 750 300 / 300 Balance 210 / 500 -290 / 210 -300 / -300 Weight last 48 hrs Weight 235 lb 12.8 oz Physical Exam Narrative: EXAM NARRATIVE: Patient is conscious alert oriented X3 BMI 37 Head and neck examination PERRLA no masses no cervical lymphadenopathy no jaundice Scrotal skin is less edematous and the scrotum overall is less swollen without evidence of cellulitis or soft tissue infection Data : 08/09/19 05:15 08/09/19 05:15 A&P Assessment and plan (1) Scrotal edema: From surgical standpoint of view no intervention and I would recommend to continue conservative measures in the form of scrotal elevation and treatment of the generalized edema as part of congestive heart failure. Optimize nutrition Follow on Urology recommendations Thank you for consulting general surgery to participate taking care Mr. Bradley Status: Acute Attestations Medical Necessity Statement*: Per hospitalist service Time Spent in Patient Care: 16 - 35 minutes (>than 50% of time spent in counselling and/or direct pt care on unit) . Coding Level of Care Code Acute Arabic Translator for [facility] Diagnoses Scrotal edema N50.89
[2019-08-09 12:17] LABS: Glucose Point of Care 96 mg/dL (70-110)
--- NOTE | 2019-08-09 15:41 | PM.PN ---
Subjective Subjective: Interval history: No acute event overnight. On examination today morning lying comfortably in bed without having any shortness of breath, cough, headache, dizziness. Still concerned and complaining of pain in the scrotal area because of swelling and states he is not able to sit up because of that reason. Patient was seen by both Dr. De Leon and Dr. Hedrick yesterday. Labs and vitals noted. Vitals/I&O/Wt Last Vital Signs Temp 97.8 F 08/09/19 15:40 Pulse 86 08/09/19 15:40 Resp 18 08/09/19 15:40 BP 146/86 08/09/19 15:40 Pulse Ox 97 08/09/19 15:40 08/09/19 08/09/19 08/09/19 06:59 14:59 22:59 Intake Total 60 / 960 Output Total 350 / 750 500 / 500 Balance -290 / 210 -500 / -500 Weight last 48 hrs Weight 106.957 kg Physical Exam Narrative: EXAM NARRATIVE: Patient is conscious alert oriented X3 BMI 37 Head and neck examination PERRLA no masses no cervical lymphadenopathy no jaundice Cardiac examination audible S1-S2 no murmurs no gallops no arrhythmias Chest fair air entry bilateral Abdomen nontender nondistended soft no organomegaly guarding or rigidity/no signs of peritonitis Remarkarbel swelling of the scrotum clinically decreasing without evidence of blistering or cellulitis or skin changes likely due to recent trauma, clinically the scrotum is soft otherwise and that includes the perineal examination Extremities shows soft pitting edema Data : 08/09/19 05:15 08/09/19 05:15 Micro: Microbiology 08/09/19 05:21 MRSA Culture - Final Nose A&P Assessment and plan (1) CHF (congestive heart failure): Acute on chronic. Known to have diastolic dysfunction but cannot rule out acute pulmonary edema related to aortic stenosis as well. Status: Chronic Qualifiers: Heart failure chronicity: acute on chronic Heart failure type: diastolic Qualified Code(s): I50.33 - Acute on chronic diastolic (congestive) heart failure (2) Acute hyperkalemia: Potentially could be related to medications though he denied taking. Also has known chronic kidney disease Status: Acute (3) Testicular pain: Status: Acute (4) Ulcers of both lower legs: Status: Acute (5) CAD (coronary artery disease): Status: Chronic Qualifiers: Coronary Disease-Associated Artery/Lesion type: [place] artery [place] vs. transplanted heart: [place] heart Associated angina: without angina Qualified Code(s): I25.10 - Atherosclerotic heart disease of [place] coronary artery without angina pectoris (6) Aortic stenosis: Severe Status: Chronic Qualifiers: Cardiac valve disease etiology: nonrheumatic Qualified Code(s): I35.0 - Nonrheumatic aortic (valve) stenosis (7) Chronic kidney disease: At least stage III Status: Chronic Qualifiers: Chronic kidney disease stage: stage 3 (moderate) Qualified Code(s): N18.3 - Chronic kidney disease, stage 3 (moderate) (8) Diabetes mellitus type 2, insulin dependent: Chronically on Levemir Status: Chronic (9) COPD (chronic obstructive pulmonary disease): Does not appear to be the primary issue at the moment Status: Chronic Qualifiers: COPD type: unspecified COPD Qualified Code(s): J44.9 - Chronic obstructive pulmonary disease, unspecified (10) Anasarca: Status: Acute Additional A&P Information Shortness of breath: Most likely because of congestive heart failure. Resolving. Change lasix to 60 mg PO daily Strict input output charting. Daily weights. Fluid restriction 1500 every 24 hours. Not sure if input output charting is correct for now. Continue with Coreg at 6.25 mg PO BID. Swollen scrotum: Most likely because of anasarca. CT results appreciated. Appreciate Dr. Hedrick's and Dr. Muniz's input. Continue with [place] for pain. We will try to arrange for a donut pillow for patient to sit on and scrotal support from the OR. Suspected peripheral arterial disease.: Normal arterial duplex study. Continue Plavix and statin. Check lipid panel. Acute kidney injury on top of chronic kidney disease stage III and hyperkalemia: Baseline creat 1.7. Creatinine worsening today most likely because of overdiuresis. Lasix changed to oral today. We will continue to monitor BMP daily. Check renal ultrasound with bladder for postvoid assessment. Will avoid any nephrotoxic medications. Will monitor renal function and electrolytes. ??Cellulitis: MRSA negative. Patient has finished 3-day course of vancomycin and Zosyn. Antibiotics stopped earlier today morning. We will continue to monitor for now. Hydrofera Blue for wound care. Leukopenia: Most likely 2/2 Abx. Will continue to monitor. No signs of sepsis DVT prophylaxis. Enoxaparin renally adjusted. Diabetes: Continue home Levemir and insulin sliding scale. FC Diabetic cardiac diet, 1500 cc fluid restriction. Attestations Medical Necessity Statement*: Anasarca, scrotal swelling Time Spent in Patient Care: 16 - 35 minutes Coding Level of Care Code Acute Litigation Legal Assistant for g Fwd Diagnoses CHF (congestive heart failure) I50.33 Heart failure chronicity: acute on chronic Heart failure type: diastolic Acute hyperkalemia E87.5 Testicular pain N50.819 Ulcers of both lower legs L97.919; L97.929 CAD (coronary artery disease) I25.10 Coronary Disease-Associated Artery/Lesion type: [place] artery [place] vs. transplanted heart: [place] heart Associated angina: without angina Aortic stenosis I35.0 Cardiac valve disease etiology: nonrheumatic Chronic kidney disease N18.3 Chronic kidney disease stage: stage 3 (moderate) Diabetes mellitus type 2, insulin dependent E11.9; Z79.4 COPD (chronic obstructive pulmonary disease) J44.9 COPD type: unspecified COPD Anasarca R60.1
[2019-08-09 17:04] LABS: Glucose Point of Care 145 mg/dL (70-110)
[2019-08-09 21:39] LABS: Glucose Point of Care 149 mg/dL (70-110)
[2019-08-09] MEDS: atorvastatin 40 mg Tablet 20 MG PO (22:15)
[2019-08-10] VITALS (10 sets, daily range): BP systolic 123–151; BP diastolic 68–90; PULSE 78–92; RESP 18–22; TEMP 36.3–36.8; O2SAT 85–98
[2019-08-10 05:37] LABS: Basophils % 0.8 %; Eosinophils # 0.1 10^3/uL (0.0-0.8); Eosinophils % 5.8 %; Hematocrit 35.6 % (42.0-52.0); Hemoglobin 10.6 g/dL (11.7-16.6); Lymphocytes # 0.3 10^3/uL (0.8-4.8); Lymphocytes % 11.6 %; Mean Corpuscular HGB Conc 29.8 g/dL (30.0-36.0); Mean Corpuscular Hemoglobin 27.5 pg (28.0-34.0); Mean Corpuscular Volume 92.2 fL (80-94); Mean Platelet Volume 8.5 fL (7.4-10.4); Monocytes # 0.4 10^3/uL (0.2-0.9); Monocytes % 18.3 %; Neutrophils # 1.5 10^3/uL (1.8-7.7); Neutrophils % 63.1 %; Nucleated Red Blood Cells % 0 %; Platelet Count 172 10^3/cmm (130-400); Red Blood Count 3.86 10^6/uL (4.1-5.3); Red Cell Distribution Width 17.2 % (12.1-15.1); White Blood Count 2.4 10^3/uL (4.0-10.0)
[2019-08-10 06:03] LABS: Alanine Aminotransferase 7 U/L (0-41); Albumin Level 3.1 g/dL (3.5-5.2); Alkaline Phosphatase 107 IU/L (40-130); Anion Gap 16.5 (5-19); Aspartate Amino Transferase 9 U/L (0-40); Blood Urea Nitrogen 49 mg/dL (8-23); Calcium 8.7 mg/dL (8.5-10.5); Carbon Dioxide 21 mmol/L (22-29); Chloride 111 mmol/L (98-107); Globulin 2.4 g/dL (1.3-4.6); Glomerular Filtration Rate 27.6 mL/min (90-130); Glucose 103 mg/dL (65-115); Osmolality Calculated 294 mOsm/kg (285-295); Potassium 5.5 mmol/L (3.5-5.1); Sodium 143 mmol/L (136-145); Total Bilirubin 0.4 mg/dL (0.15-1.2); Total Protein 5.5 g/dL (6.6-8.7)
[2019-08-10 07:01] LABS: Glucose Point of Care 106 mg/dL (70-110)
[2019-08-10] MEDS: hyDRALAzine 10 mg Tablet PO ×3 (08:00→21:21)
[2019-08-10] MEDS: HYDROcodone-acetaminophen 5-325 mg Tablet 1 TAB PO ×2 (08:00→21:21)
[2019-08-10] MEDS: clopidogrel 75 mg Tablet PO (08:01)
[2019-08-10] MEDS: FUROsemide 40 mg Tablet 60 MG PO (08:01)
[2019-08-10] MEDS: carvedilol 6.25 mg Tablet PO ×2 (08:01→17:40)
[2019-08-10] MEDS: enoxaparin 40 mg/0.4 mL Syringe SUBCUT (08:01)
[2019-08-10 10:47] LABS: Glucose Point of Care 115 mg/dL (70-110)
--- NOTE | 2019-08-10 12:26 | PM.DCS ---
Discharge Providers Date of Admission: 08/07/19 09:42 Date of Discharge: August 10, 2019 Attending Provider at Admission: Jessica Ty MD Attending Provider at Discharge: Bjorn Aguilar MD Diagnoses at Discharge Discharge Diagnosis (1) CHF (congestive heart failure): Status: Chronic Problem details: Last echo here in 10/04 showed EF of 67% with grade 2/4 diastolic dysfunction with severe aortic stenosis with DEBI 0.84 cm2 Qualifiers: Heart failure chronicity: acute on chronic Heart failure type: diastolic Qualified Code(s): I50.33 - Acute on chronic diastolic (congestive) heart failure (2) Acute hyperkalemia: Status: Acute (3) Testicular pain: Status: Acute (4) Ulcers of both lower legs: Status: Acute (5) CAD (coronary artery disease): Status: Chronic Problem details: RCA stent Qualifiers: Associated angina: without angina Coronary Disease-Associated Artery/Lesion type: [place] artery [place] vs. transplanted heart: [place] heart Qualified Code(s): I25.10 - Atherosclerotic heart disease of [place] coronary artery without angina pectoris (6) Aortic stenosis: Status: Chronic Problem details: Aortic valve area 0.84 cm? with a mean gradient of 44 mmHg on last available echocardiogram from September of last year. Sounds like he has not followed up consistently. Qualifiers: Cardiac valve disease etiology: nonrheumatic Qualified Code(s): I35.0 - Nonrheumatic aortic (valve) stenosis (7) Chronic kidney disease: Status: Chronic Qualifiers: Chronic kidney disease stage: stage 3 (moderate) Qualified Code(s): N18.3 - Chronic kidney disease, stage 3 (moderate) (8) Diabetes mellitus type 2, insulin dependent: Status: Chronic (9) COPD (chronic obstructive pulmonary disease): Status: Chronic Qualifiers: COPD type: unspecified COPD Qualified Code(s): J44.9 - Chronic obstructive pulmonary disease, unspecified (10) Anasarca: Status: Acute Reason for Visit Reason for Visit: Reason For Visit: CHF EXACERBATION, HYPERKALEMIA Hospital Course Discharge Summary: Richi Bradley, 64-year-old male with past medical history of severe aortic stenosis, CAD, chronic kidney disease, COPD, type 2 diabetes mellitus, dyslipidemia, hypertension, noncompliant gentleman who presented to the ER on August 06 actually with chief complaint of testicular pain which according to him started after a dog jumped on him around 2 days ago. In ER patient was noted to be grossly edematous including his scrotal area. Evaluation in ER showed chest x-ray significant for increasing pulmonary vasculature due to pulmonary edema with proBNP of more than 30,000. On further questioning it was made aware that patient has not been taking his home medications for more than a month as his primary care physician has retired with last refilling of the medication in follow-up 2019. Patient was admitted to the floor for generalized anasarca in view of congestive heart failure in setting of aortic stenosis. Treated with aggressive IV diuresis. For scrotal swelling though the swelling was coming down but patient continued to have incredible pain for which CT scrotum without contrast and ultrasound scrotum with arterial duplex was done and was negative for any acute injury but was consistent with right hydrocele and generalized swelling consistent with anasarca. For scrotal swelling patient was seen by Dr. De Leon from general surgery and Dr. Quiñones from urology and both agreed that patient's symptoms are most likely because of generalized anasarca and there is no concern for Rahul's gangrene versus testicular torsion. Patient was started on [place] for pain. Patient is advised to continue wearing scrotal support which has been provided to him during the day. Due to aggressive diuresis patient's creatinine kevin to 2.4 which has been stable for over 2 days. Patient has been made an appointment with a new primary care provider. Medications have been provided to him at bedside. His dose of carvedilol and insulin have been adjusted as per his current blood pressure and insulin requirements. Patient is advised to follow-up with his new primary care provider on the same date. Home O2 evaluation was done prior to discharge. He is advised to repeat BMP in 1 week and follow-up with his primary care physician. Patient is also advised to follow-up with cardiology for further work-up of aortic stenosis. It is possible patient would need single-vessel CABG with aortic valve replacement. He is been discharged in hemodynamically stable condition to follow-up with consultants. Physical Exam Narrative: EXAM NARRATIVE: Patient is conscious alert oriented X3 BMI 37 Head and neck examination PERRLA no masses no cervical lymphadenopathy no jaundice Cardiac examination audible S1-S2 no murmurs no gallops no arrhythmias Chest fair air entry bilateral Abdomen nontender nondistended soft no organomegaly guarding or rigidity/no signs of peritonitis Remarkarbel swelling of the scrotum clinically decreasing without evidence of blistering or cellulitis or skin changes likely due to recent trauma, clinically the scrotum is soft otherwise and that includes the perineal examination Extremities shows soft pitting edema Discharge Data Data Completed and Pending: Completed Studies During Hospitalization Category Date Time Status CT pelvis wo con [id number] Routine Cat Scan 08/08/19 12:41 Completed XR chest 1V lizzette ble [id number] Urgent Exams 08/06/19 20:13 [place] [id number] Urge nt Ultrasound 08/06/19 20:25 Completed US renal BI* [id number] Routine Ultrasound 08/09/19 07:32 Completed US scrotum [id number] Routine Ultrasound 08/07/19 06:05 Completed Labs from last 24 hours 08/10/19 08/10/19 08/10/19 10:34 06:34 05:05 WBC RBC Hgb Hct MCV MCH MCHC RDW Plt Count MPV Neut % (Auto) Lymph % (Auto) [place] % (Auto) Eos % (Auto) Baso % (Auto) Neut # (Auto) Lymph # (Auto) [place] # (Auto) Eos # (Auto) Baso # (Auto) Nucleated RBC % (a uto) Nucleated RBCs # Sodium 143 Potassium 5.5 H Chloride 111 H Carbon Dioxide 21 L Anion Gap 16.5 BUN 49 H Creatinine 2.4 H GFR Calculation 27.6 L Glucose 103 POC Glucose 115 106 Calculated Osmolal ity 294 Calcium 8.7 Total Bilirubin 0.4 AST 9 ALT 7 Alkaline Phosphata se 107 Total Protein 5.5 L Albumin 3.1 L Globulin 2.4 08/10/19 08/09/19 08/09/19 05:05 21:25 16:59 WBC 2.4 L RBC 3.86 L Hgb 10.6 L Hct 35.6 L MCV 92.2 MCH 27.5 L MCHC 29.8 L RDW 17.2 H Plt Count 172 MPV 8.5 Neut % (Auto) 63.1 Lymph % (Auto) 11.6 [place] % (Auto) 18.3 Eos % (Auto) 5.8 Baso % (Auto) 0.8 Neut # (Auto) 1.5 L Lymph # (Auto) 0.3 L [place] # (Auto) 0.4 Eos # (Auto) 0.1 Baso # (Auto) 0.0 Nucleated RBC % (a uto) 0 Nucleated RBCs # 0.0 Sodium Potassium Chloride Carbon Dioxide Anion Gap BUN Creatinine GFR Calculation Glucose POC Glucose 149 145 Calculated Osmolal ity Calcium Total Bilirubin AST ALT Alkaline Phosphata se Total Protein Albumin Globulin Vitals: Last Vital Signs Temp 97.6 F 08/10/19 11:09 Pulse 85 08/10/19 11:09 Resp 18 08/10/19 11:09 BP 123/78 08/10/19 11:09 Pulse Ox 96 08/10/19 11:09 Discharge Plan Discharge Patient Disposition: Home, Self-Care Condition: Stable Prescriptions: New furosemide 40 mg Tablet 60 mg PO DAILY@0800 Qty: 50 RF: 0 atorvastatin 40 mg Tablet 20 mg PO BEDTIME Qty: 30 RF: 0 carvedilol 6.25 mg Tablet 6.25 mg PO BID Qty: 60 RF: 0 clopidogrel 75 mg Tablet 75 mg PO DAILY Qty: 30 RF: 0 Levemir U-100 Insulin 100 unit/mL Solution 13 unit SUBCUT BEDTIME Qty: 100 RF: 0 Continued Tylenol Extra Strength 500 mg Tablet 1,000 mg PO Q4H PRN (Reason: Pain) RF: 0 Discontinued furosemide 40 mg tablet 40 mg PO DAILY RF: 0 carvedilol 25 mg tablet 25 mg PO BID RF: 0 cefuroxime axetil 250 mg tablet 250 mg PO BID RF: 0 atorvastatin 10 mg tablet 10 mg PO BEDTIME RF: 0 Levemir FlexTouch U-100 Insuln 100 unit/mL (3 mL) insulin pen 42 unit SUBCUT BEDTIME RF: 0 potassium chloride 20 mEq Tablet Extended Release 20 meq PO DAILY RF: 0 Discharge Orders: Discharge Order (Routine); Ordered 08/10/19 Ordered By: Bjorn Aguilar Other Ambulatory Orders: DME: Miscellaneous (Order) Location: None Selected Ordered By: Bjorn Aguilar Referrals: Luis Quiñones MD [Physician] - 08/23/19 7:30 am (DR QUIÑONES OFFICE WILL CALL WITH APPOINTMENT ) Cher Braun DO [Physician] - 08/13/19 2:15 pm Nathalie Hernandez MD [Physician] - 2 weeks (Severe aortic stenosis with RCA lesion for possible single-vessel CABG and aortic valve replacement.) Discharge Diet: Cardiac and Low Salt Discharge Activity: Resume usual activity Patient Instructions: Atorvastatin (By mouth), Carvedilol (By mouth), Clopidogrel (By mouth), Heart Failure (DC), Hyperkalemia (DC), CHF Stoplight Activity Restrictions/Additional Instructions: Please check basic metabolic panel in 1 week. Please follow-up with your primary care physician on this appointment. Dose of Coreg, insulin have been changed. Please follow-up with the cardiology consult appointment for aortic stenosis. He would most likely need aortic valve replacement along with one-vessel CABG. Patient would need scrotal support for scrotal swelling to be worn continuously except when sleeping. Please follow-up with Dr. Quiñones in 2 weeks. Discharge Attestations Time Spent in Discharge Care*: greater than 30 min Specific Discharge Activities: Specific discharge activities: educating patient, discussing with gearcase assembler/social workers/dc planners, documenting/other paperwork and evaluating patient/reviewing data Status at Discharge: Cognitive status at discharge: cognitively intact, Behavioral status at discharge: cooperative, Functional status at discharge: independent ambulation Overall status at discharge: patient is back to baseline Quality Metrics Clinical Quality Measures During this hospital stay, did patient experience: None Coding Level of Care Code Acute Case Hardener for g Fwd Diagnoses CHF (congestive heart failure) I50.33 Heart failure chronicity: acute on chronic Heart failure type: diastolic Acute hyperkalemia E87.5 Testicular pain N50.819 Ulcers of both lower legs L97.919; L97.929 CAD (coronary artery disease) I25.10 Associated angina: without angina Coronary Disease-Associated Artery/Lesion type: [place] artery [place] vs. transplanted heart: [place] heart Aortic stenosis I35.0 Cardiac valve disease etiology: nonrheumatic Chronic kidney disease N18.3 Chronic kidney disease stage: stage 3 (moderate) Diabetes mellitus type 2, insulin dependent E11.9; Z79.4 COPD (chronic obstructive pulmonary disease) J44.9 COPD type: unspecified COPD Anasarca R60.1
[2019-08-10 16:26] LABS: Glucose Point of Care 123 mg/dL (70-110)
--- NOTE | 2019-08-10 19:59 | PM.EVENT ---
Event Note Event Note: Notified by nursing staff that transport was not able to be arranged for discharge today as various companies could not transport additional patients this evening. No other transport alternatives identified. Will continue care as previously ordered. Transport will be able to be done tomorrow from what I have been told.
--- NOTE | 2019-08-10 20:41 | PC.NURSE ---
PATIENT IS UPSET DUE TO MEDICAL RIDE NOT PICKING HIM UP THIS PM AND IS REFUSING VITALS TO BE TAKEN.
[2019-08-10] MEDS: atorvastatin 40 mg Tablet 20 MG PO (21:20)
[2019-08-10 21:27] LABS: Glucose Point of Care 118 mg/dL (70-110)
--- NOTE | 2019-08-10 22:12 | PC.NURSE ---
pt left via wheelchair with nursing staff and oxygen concentrator at 2145. pt met family downstairs. family assisted nursing staff with pt into vehicle. all belongings with patient.
--- NOTE | 2019-08-13 17:36 | PC.NURSE ---
Patient called and gave permission for his neighbor Mariela Teixeira to speak with me regarding concerns that he had from his admission. Patient states that he did not recieve a device from HOME that would help with scrotal edema. Contacted Mireya with social professionals. Patient received jock strap for his edema prior to discharge on the 09 of August. Patient also stated that he was unable to get to appointment follow up today with primary care due to not having a ride. Concern was voiced by neighbor that patient was neglected regarding pain control on discharge. Physician contacted to follow up with patient. Encouraged patient neighbor and patient to return to ED if pain was not manageble or to contact Dr. Hedrick for instructions.
--- NOTE | 2019-08-14 09:02 | PC.SOCIAL ---
Entered the Hospital bed into cyber access and it will be approved if the provider indicates all criteria are met. Talked with Dr Aguilar and provider is not willing to add any additional information to record if not already included. Provider does not think he would meet all the criteria. Called Mariela Jones who is the friend that called yesterday and is a nurse she was updated that the hospital bed is not going to be ordered by Dr Aguilar. He should follow up with PCP. Mariela explained in detail the reasons why he needs more care. This nurse explained that no matter what equipment is ordered it will not serve the underlying needs for usp placement and his ongoing swelling and other issues. Mariela Jones did agree that this would be the best option but he wont want to give up his check. This nurse explained the reality is he will need more care and if he continues current situation he will have no choice but to deescalate care down the road and consider Hospice or he will end up computer terminal operator placement anyway. Mariela mentions that he nor his significant other is not truly capable of caring for him since she has a hard time of keeping up with things. We discussed Hospice as an option. She agreed that this would be something they should consider. This nurse explained I cant give information regarding his disease process but her opinion is he would qualify. He wants to be comfortable per her report.
--- NOTE | 2019-08-15 07:43 | PC.SOCIAL ---
Late entry for 08/14/[address] Aguilar on previous conversation with Mariela. His medical opinion is that Hospice is too premature and is not his recommendation. Just to be clear this nurse spoke with Mariela again to relay this information. She verbalized understanding. Later after hours at 1800 Mariela called back. S.O. and patient were in the background. Mariela indicates they have talked about it and want to pursue Hospice. This nurse reminded her again this was not Dr Aguilar recommendation and I am not sure if he would qualify but would reach out to company of his choice to have a rep come explain what Hospice is about and what the requirements are and discuss if he might qualify. They were all in agreement including patient and S.O. in the background. This nurse will reach out to a rep from [address] [place] [address] per their choice to see if someone could talk to him. Patient requests along with S.O. that communication go through Mariela to arrange a time.
--- NOTE | 2019-08-15 08:58 | PC.SOCIAL ---
Mariela friend of family reached out to [place] this am herself and asked that she call me prior to me having time to contact Joyce. Discussed the case in detail with Joyce indicating that patient may not qualify and that Dr Aguilar is not recommending this. We discussed this was all in reference to the call between myself and Mariela. Also updated Joyce the patient, significant other and Mariela were notified yesterday this is not being ordered but if they want to talk to a healthcare sales representative then it can be arranged so they know more about what this service offers and if he is even a candidate. She will have Jassi reach out and schedule a time to talk with them and was asked to communicate through Mariela and her number was provided.
--- NOTE | 2019-08-16 09:05 | PC.SOCIAL ---
Jassi from [facility] called to indicate patient does want Hospice and they feel he is a suitable candidate. MANAGER ANIMATION has went out to evaluate as well. Did request records for continuity of care purposes such as H and P and DC summary from most recent hospitalization. Call placed to Mr. Bradley by this nurse and he indicates if they need the records let them have it when asked if he is agreeable for records to be sent to this company. Records faxed to [phone] Attn. Jassi. Please note friend Mariela also contacted me this am and indicates they have talked with the support representative from this facility and also been seen care provider and is agreeable. She thanked me for my help.
== END 2019-08-10 21:45 | disposition home or self-care (01) | DRG 291 ==
LOC: ER 22:30 → MEDSURG 22:31
PROVIDERS: Internal Medicine; Admitting Provider Hospitalist; Emergency Provider Emergency Medicine; Family Provider Family Medicine; Visit Provider Student in an Organized Health Care Education/Training Program
DX: I13.0 Hypertensive heart and chronic kidney disease with heart failure and stage 1 through stage 4 chronic kidney disease, or unspecified chronic kidney disease (principal); I50.33 Acute on chronic diastolic (congestive) heart failure; L97.919 Non-pressure chronic ulcer of unspecified part of right lower leg with unspecified severity; L97.929 Non-pressure chronic ulcer of unspecified part of left lower leg with unspecified severity; I25.10 Atherosclerotic heart disease of native coronary artery without angina pectoris; J44.9 Chronic obstructive pulmonary disease, unspecified; E87.5 Hyperkalemia; N50.819 Testicular pain, unspecified; Z95.5 Presence of coronary angioplasty implant and graft; I35.0 Nonrheumatic aortic (valve) stenosis; E11.22 Type 2 diabetes mellitus with diabetic chronic kidney disease; N18.3 Chronic kidney disease, stage 3 (moderate); E78.5 Hyperlipidemia, unspecified; Z91.19 Patient's noncompliance with other medical treatment and regimen; Z87.891 Personal history of nicotine dependence
CPT/HCPCS: 12345; 36415; 36416; 51798; 71045; 72192; 76770; 76857; 76870; 80048; 80053; 80069; 81001; 82962; 83735; 83880; 84100; 85025; 85610; 87641; 90471; 90686; 93005; 93925; 96372; 96374; 96375; 99283; 99285; G0378; J1650; J1815; J1940; J2543; J3370; J7050